=== PATIENT | female | born 1935 | race Caucasian/White ===

== ENCOUNTER 2017-10-10 17:25 | Inpatient (IN) ==
[2017-10-10] MEDS ORDERED: 0.9 % Sodium Chloride 1,000 ML IVC ONE (17:47)
[2017-10-10] MEDS ORDERED: methylPREDNISolone 125 MG/2 ML VIAL IVP ONE (17:51)
[2017-10-10] MEDS ORDERED: Ipratropium/Albuterol Neb 3 ML IH ONE (17:51)
[2017-10-10] MEDS ORDERED: Azithromycin 500 MG in D5% in Water 250 ML IVPB STA (17:53)
--- NOTE | 2017-10-10 17:56 | Emergency Department Note ---
Disposition Clinical Impression: Hypoxia, Mobitz type 2 second degree AV block Pneumonia Qualifiers: Pneumonia type: due to unspecified organism Laterality: unspecified laterality Lung location: unspecified part of lung Qualified Code(s): J18.9 - Pneumonia, unspecified organism Disposition: Admitted As Inpatient Condition: Critical General Adult HPI - General Chief complaint: ED Syncope Stated complaint: pneumonia/syncope Time Seen by Provider: 10/10/17 17:36 Source: patient Limitations: no limitations Nursing Notes Reviewed: Yes Vital Signs Reviewed: Yes - History of Present Illness HPI Narrative: Past medical history of COPD not home oxygen dependent, Lewy body dementia, hypertension presents for evaluation of dyspnea. Patient's symptoms started approximately 1 week ago. Outpatient labs and chest x-ray from yesterday showed multi focal pneumonia. Patient had an elevated white count of 14. She was started on steroids as well as Levaquin. At home today she had acute worsening of her symptoms. She had an episode of reported syncope where she slumped back into her chair in her eyes glazed over. Pain Scale: 0 - Related Data Allergies Allergy/AdvReac Type Severity Reaction Status Date / Time No Known Allergies Allergy Verified 10/10/17 17:28 All systems ED: reviewed and negative except as stated. Constitutional: Reports: fever, chills Cardiovascular: Reports: dyspnea on exertion Respiratory: Reports: cough, dyspnea, wheezes, sputum production Gastrointestinal: Denies: abdominal pain, nausea, vomiting, diarrhea Musculoskeletal: Denies: back pain Integumentary: Denies: rash, abrasion, lesions Psychiatric: Reports: other (dementia) Endocrine: Reports: fatigue Past Medical History - Past Medical History Medical history: Reports: COPD, dementia, hyperlipidemia, hypertension, other Surgical history: Reports: non-contributory Psychiatric history: Reports: no psych history - Social History Smoking Status: Former smoker Smokeless Tobacco Status: No Alcohol use: Reports: none Drug use: Reports: none Physical Exam General: acute respiratory distress. Head: Normocephalic Atraumatic Eyes: PERRL, EOMI ENT: Airway patent, no stridor Neck: supple, no meningismus Chest: Diminished b/l Cardiac: bradycardic Regular rhythm, no murmurs, rubs or gallops Abdomen: soft, nontender, nondistended; no guarding, rebound, or tenderness to percussion Musculoskeletal: Calves symmetric, +2 pitting edema to the knee Skin: No rash, normal skin tone Neuro: Alert and Oriented to person, place - General Limitations: no limitations General appearance: alert Course Course Narrative: Patient respiratory distress with Mobitz type II and bradycardia. Sepsis order set ordered. Fluids, breathing treatments, antibiotics, steroids, atropine ordered. - Reevaluation(s) Reevaluation #1: Patient tolerating BiPAP well. Called by lab for troponin of 0.10. Aspirin given. Time: 18:31 Reevaluation #2: After the patient was placed on BiPAP she had a decrease in her blood pressure which is likely secondary to decreased catecholamine surge. Patient's blood pressure had multiple readings less than 90 systolic. The patient was given atropine with an initial increase in her blood pressure. After approximately 10 minutes the patient's blood pressure has responded. Patient initially lost IV access in the left arm. A right IV has been placed. A second IV has not been able to be established. A central line will be placed. - Consultations Consultation #1: Case was discussed with Dr. Unger, interventional cardiology, adenosine has been given depending on her response to that we can also use dopamine as needed for heart rate and blood pressure response. These are unsuccessful he would like a call back to be notified so that she may receive a pacemaker. Consultation #2: Discussed with hospitalist who requests central line prior to going to the ICU. Central line will be placed. Patient accepted for further evaluation. Vital Signs Temperature 97.7 F 10/10/17 17:28 Pulse Rate 138 10/10/17 17:28 Respiratory Rate 28 10/10/17 17:28 Blood Pressure 183/159 10/10/17 17:28 O2 Sat by Pulse Oximetry 95 10/10/17 17:28 Temperature 98.2 F 10/11/17 00:00 Pulse Rate 44 10/11/17 00:12 Respiratory Rate 25 10/11/17 00:00 Blood Pressure 142/60 10/11/17 00:00 O2 Sat by Pulse Oximetry 95 10/11/17 00:00 Oxygen Delivery Oxygen Delivery Non Rebreather Mask Procedures - Central Line Placement Right IJ Central Line Inserted*: Yes Central Line Catheter Replacement*: Yes Central Line Insertion: emergent Consent Obtained: verbal consent, written consent Procedural Pause: verify patient name and date of , timeout performed per policy, dana and assess the site, assemble equipment and verify supplies, perform hand hygiene Patient Placed on Monitor/Pulse Ox: Yes During the Procedure: clinician is wearing sterile gloves, cap, mask,& gown during insertion, sterile field and sterile technique are maintained, patient's face is covered with drape or mask and wearing a cap, everyone in room is wearing a mask Central Line Prep: Chlorhexidine scrub Prep the Procedure Site: apply chloraprep to the skin using a back and forth scrubbing motion, apply chloraprep for 30 seconds (upper body), 1-2 min ( femoral sites), allow prep to dry, drape the patient with a full body drape Local Anesthetic: lidocaine 1% Amount of anesthesia used (mL): 3 Ultrasound Used for Placement: Yes Central Line Lumen Inserted: triple Post Procedure: sutured in place, good blood return, all ports aspirated, flushed, capped, sterile dressing applied, guide wire removed and visualized, dressing is dated Post Procedure X-Ray: tip of catheter in good position, no pneumothorax seen Patient Tolerated Procedure: well, no complications Complications: none Medical Decision Making - Medical Records Medical records reviewed: Yes I reviewed the patient's medical records. - Lab Data Lab results reviewed: Yes I reviewed the patient's lab results. Result diagrams: 10/10/17 17:59 10/10/17 17:59 Lab Results 10/10/17 10/10/17 10/10/17 Range/Units 17:59 17:59 17:59 WBC 14.0 H (4.3-11.1) K/mcL RBC 4.37 (3.82-4.97) M/mcL Hgb 12.1 (11.5-15.4) g/dL Hct 39.7 (35.3-44.9) % MCV 90.8 (83.0-100.0) fL MCH 27.7 L (28.0-33.3) pg MCHC 30.5 L (31.6-35.5) g/dL RDW 14.4 (11.5-14.5) % Plt Count 252 (140-400) K/mcL MPV 10.8 (9.4-12.4) fL Immature Gran % 0.4 (0-4) % Seg Neutrophils % 92.4 % Lymphocytes % 5.1 % Monocytes % 1.3 % Eosinophils % 0.7 % Basophils % 0.1 % Neutrophils # 12.9 H (1.6-8.9) K/mcL Lymphocytes # 0.7 (0.6-4.6) K/mcL Monocytes # 0.2 (0.0-1.3) K/mcL Eosinophils # 0.1 (0.0-0.6) K/mcL Basophils # 0.0 (0.0-0.2) K/mcL Sodium 139 D (136-145) mEq/L Potassium 4.4 (3.5-4.5) mEq/L Chloride 104 (98-109) mEq/L Carbon Dioxide 27 (19-29) mEq/L BUN 45 H (7-20) mg/dL Creatinine 1.28 H (0.57-1.11) mg/dL Est GFR ( Amer) 49 L (> 60) Est GFR (Non-Af Amer) 40 L (> 60) BUN/Creatinine Ratio 35 H (6-26) Glucose 91 (70-99) mg/dL Calculated Osmolality 299 (280-300) Lactic Acid 2.3 H (0.5-2.2) mmol/L Calcium 9.0 (8.6-10.8) mg/dL Phosphorus 4.0 (2.3-4.7) mg/dL Magnesium 1.8 (1.6-2.6) mg/dL Total Bilirubin 0.9 (0.2-1.2) mg/dL Direct Bilirubin 0.4 (0.0-0.5) mg/dL Indirect Bilirubin 0.5 (0.0-1.2) mg/dL AST 30 (5-34) Units/L ALT 29 (0-55) Units/L Alkaline Phosphatase 77 (38-126) Units/L Troponin I (0-0.03) ng/mL B-Natriuretic Peptide (0-100) pg/mL Serum Total Protein 6.2 (6.0-8.3) g/dL Albumin 2.7 L (3.5-5.0) g/dL Globulin 3.5 (2.4-3.5) g/dL Albumin/Globulin Ratio 0.8 L (1.1-2.2) TSH 1.972 (0.350-4.840) mcIU/mL 10/10/17 10/10/17 Range/Units 17:59 17:59 WBC (4.3-11.1) K/mcL RBC (3.82-4.97) M/mcL Hgb (11.5-15.4) g/dL Hct (35.3-44.9) % MCV (83.0-100.0) fL MCH (28.0-33.3) pg MCHC (31.6-35.5) g/dL RDW (11.5-14.5) % Plt Count (140-400) K/mcL MPV (9.4-12.4) fL Immature Gran % (0-4) % Seg Neutrophils % % Lymphocytes % % Monocytes % % Eosinophils % % Basophils % % Neutrophils # (1.6-8.9) K/mcL Lymphocytes # (0.6-4.6) K/mcL Monocytes # (0.0-1.3) K/mcL Eosinophils # (0.0-0.6) K/mcL Basophils # (0.0-0.2) K/mcL Sodium (136-145) mEq/L Potassium (3.5-4.5) mEq/L Chloride (98-109) mEq/L Carbon Dioxide (19-29) mEq/L BUN (7-20) mg/dL Creatinine (0.57-1.11) mg/dL Est GFR ( Amer) (> 60) Est GFR (Non-Af Amer) (> 60) BUN/Creatinine Ratio (6-26) Glucose (70-99) mg/dL Calculated Osmolality (280-300) Lactic Acid (0.5-2.2) mmol/L Calcium (8.6-10.8) mg/dL Phosphorus (2.3-4.7) mg/dL Magnesium (1.6-2.6) mg/dL Total Bilirubin (0.2-1.2) mg/dL Direct Bilirubin (0.0-0.5) mg/dL Indirect Bilirubin (0.0-1.2) mg/dL AST (5-34) Units/L ALT (0-55) Units/L Alkaline Phosphatase (38-126) Units/L Troponin I 0.10 H* (0-0.03) ng/mL B-Natriuretic Peptide 867 H (0-100) pg/mL Serum Total Protein (6.0-8.3) g/dL Albumin (3.5-5.0) g/dL Globulin (2.4-3.5) g/dL Albumin/Globulin Ratio (1.1-2.2) TSH (0.350-4.840) mcIU/mL - Radiology Data Radiology results reviewed: Yes I reviewed the patient's radiology results. - EKG Data EKG #1 EKG attestation: Yes I reviewed and interpreted this EKG. EKG results narrative: EKG shows sinus bradycardia with second-degree AV block Mobitz type II. Patient 's ventricular rate is 37. QRS 146. QTC 401. No previous EKG for comparison.
[2017-10-10] MEDS ORDERED: *HR* Atropine Sulfate 1 MG/10 ML SYRINGE IVP ONE ×2 (17:58→18:57)
[2017-10-10 18:09] LABS: Basophils % 0.1 %; Eosinophils # 0.1 K/mcL (0.0-0.6); Eosinophils % 0.7 %; Hematocrit 39.7 % (35.3-44.9); Hemoglobin 12.1 g/dL (11.5-15.4); Immature Granulocytes % 0.4 % (0-4); Lymphocytes # 0.7 K/mcL (0.6-4.6); Lymphocytes % 5.1 %; Mean Corpuscular HGB Conc 30.5 g/dL (31.6-35.5); Mean Corpuscular Hemoglobin 27.7 pg (28.0-33.3); Mean Corpuscular Volume 90.8 fL (83.0-100.0); Mean Platelet Volume 10.8 fL (9.4-12.4); Monocytes # 0.2 K/mcL (0.0-1.3); Monocytes % 1.3 %; Neutrophils # 12.9 K/mcL (1.6-8.9); Platelet Count 252 K/mcL (140-400); Red Blood Count 4.37 M/mcL (3.82-4.97); Red Cell Distribution Width 14.4 % (11.5-14.5); Segmented Neutrophils % 92.4 %
[2017-10-10 18:23] LABS: Albumin 2.7 g/dL (3.5-5.0); Albumin/Globulin Ratio 0.8 (1.1-2.2); Bilirubin,Direct 0.4 mg/dL (0.0-0.5); Bilirubin,Indirect 0.5 mg/dL (0.0-1.2); Bilirubin,Total 0.9 mg/dL (0.2-1.2); Globulin 3.5 g/dL (2.4-3.5); Magnesium 1.8 mg/dL (1.6-2.6); Potassium 4.4 mEq/L (3.5-4.5); Total Protein 6.2 g/dL (6.0-8.3)
[2017-10-10] MEDS ORDERED: Aspirin 81 MG TAB.CHEW PO STA (18:30)
--- NOTE | 2017-10-10 18:34 | Emergency Department Note ---
START Narrative - START START: I examined this patient and my medical decision-making was reviewed with the Resident Physician. I agree with the documented findings, disposition and treatment plan as described except to the extent set forth below. Patient was independently seen and evaluated by myself. Patient was seen with the emergency medicine resident Nahid Santos. Please see copy of her notes for details of this ED encounter management and disposition. Briefly: A 82-year-old female with COPD but no O2 dependent presents with several days of cough and shortness of breath bradycardia. Patient was an outpatient x-ray done yesterday which showed multifocal pneumonia and was started on steroids and Levaquin. Increasing fatigue cough shortness of breath patient was bradycardic in the 40s to 50s with a second-degree type II block. Troponin elevated 0.11 consistent with possible NSTEMI. Patient getting IV antibiotics and fluids here from BiPAP getting a DuoNeb in-line treatments. Providing 45 minutes critical care service for this patient admission disposition pending
[2017-10-10 19:22] LABS: Thyroid Stimulating Hormone 1.972 mcIU/mL (0.350-4.840)
[2017-10-10] MEDS ORDERED: Naloxone 0.4 MG/ML INJ IVP PRN (20:23)
[2017-10-10] MEDS ORDERED: Acetaminophen 325 MG TABLET PO PRN (20:23)
[2017-10-10] MEDS ORDERED: Ondansetron 4 MG/2 ML VIAL IVP PRN (20:23)
[2017-10-10 20:26] LABS: Bilirubin,Urine Negative (Negative); Blood,Urine Moderate (Negative); Clarity,Urine Cloudy (Clear); Color,Urine Yellow (Yellow); Glucose,Urine (UA) Normal (Normal); Ketones,Urine Negative (Negative); Leukocyte Esterase,Urine Negative (Negative); Nitrite,Urine Negative (Negative); Protein,Urine >=1000 mg/dL (Neg-Trace); Specific Gravity,Urine 1.025 (1.010-1.025); Urobilinogen,Urine Normal (Normal)
[2017-10-10 20:27] LABS: Squamous Epithelial Cell,Urine Many per lpf (None-Few)
[2017-10-10] MEDS ORDERED: 0.9 % Sodium Chloride 1,000 ML IVC SCH (20:30)
[2017-10-10] MEDS ORDERED: Albuterol 2.5 MG/3 ML NEBULIZER IH PRN (20:32)
--- NOTE | 2017-10-10 20:34 | Internal Med History&Physical ---
<Jerardo Bruno - Last Filed: 10/10/17 22:49> Date of Encounter: 10/10/17 Time of Encounter: 20:20 Assessment and Plan (1) Acute and chronic respiratory failure with hypoxia Current visit: Yes Status: Acute History of COPD and Asthma, no oxygen dependence spO2 in 70-80s in ED Transitioned to BiPAP and sating in 90s now Likely etiology: - Due to pulmonary consolidations - CAP - Additional history of CHF with preserved EF with ECHO 08/28/17 showing EF 60 -65% with mild diastolic LV dysfunction - BNP 867, no previous, will follow Plan: BiPAP support ABG ordered Pulse ox monitoring Duonebs WALKER Albuterol PRN See further treatment below for CAP/Sepsis Pulm/Critical care consulted CODE status - DNR CCA/DNI (2) Symptomatic bradycardia Current visit: Yes Status: Acute History of intermittent syncopal episodes during the last 2 months Improving Dopamine added Cardiology consult pending (3) Mobitz type 2 second degree AV block Current visit: Yes Status: Acute No history of this previously per family EKG demonstrated dropped QRS complexes without CA progression Atropine was given in ED and HR patricia from 30 to 40s. BP stable. Central line in place with dopamine drip for now Cardiology on-board and will followup in the morning to discuss further intervention Cardiac monitoring (4) Sepsis Current visit: Yes Status: Acute Criteria met: See below for management Qualifiers: Sepsis type: sepsis due to unspecified organism Qualified Code(s): A41.9 - Sepsis, unspecified organism (5) CAP (community acquired pneumonia) Current visit: Yes Status: Acute CXR done today showing multilobar consolidations with small left pleural effusion WBC 14.0 Tachypneic with RR in 20s and 30s Sepsis Criteria met - Fluids, Abx and blood cultures sent in ED Lactic acid 2.3, will repeat Plan: IV Cefepime IV Zithromax Solu-Medrol WALKER Duo-nebs WALKER Albuterol PRN Respiratory panel sent Pulse ox monitoring BiPAP for now Qualifiers: Laterality: unspecified laterality Qualified Code(s): J18.9 - Pneumonia, unspecified organism (6) FIORELLA (acute kidney injury) Current visit: Yes Status: Acute Cr 1.28 on arrival. Minimally improved from Urgent care visit yesterday. No history of CKD per family/pt or EMR Gentle IVF for now Recheck BMP in the morning (7) Elevated troponin Current visit: Yes Status: Acute Trop 0.10. Denies any chest pain. EKG with second degree heart block type II Cardiology on board Will trend (8) HTN (hypertension) Current visit: Yes Status: Acute Takes Amlodipine at home. BP have been elevated since arrival. Will restart and follow Qualifiers: Hypertension type: essential hypertension Qualified Code(s): I10 - Essential (primary) hypertension (9) Lewy body dementia Current visit: Yes Status: Chronic Medication rec shows no medical therapy at this time. Will continue to monitor Qualifiers: Dementia behavioral disturbance: without behavioral disturbance Qualified Code(s): G31.83 - Dementia with Lewy bodies; F02.80 - Dementia in other diseases classified elsewhere without behavioral disturbance; F02.80 - Dementia in other diseases classified elsewhere without behavioral disturbance; F02.80 - Dementia in other diseases classified elsewhere without behavioral disturbance (10) HLD (hyperlipidemia) Current visit: Yes Status: Acute Takes Atorvastatin at home Qualifiers: Hyperlipidemia type: unspecified Qualified Code(s): E78.5 - Hyperlipidemia , unspecified (11) DVT prophylaxis Current visit: Yes Status: Acute Heparin 5000 units BID Internal Medicine - H&P: HPI Chief complaint: shortness of breath Admitted From: Home Plans for Post Hospital Care: Home History of present illness: Ms. 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 Per family, her dyspnea started roughly 2 months ago and she has been using Duonebs q4 at home without moderate relief. She was seen at [facility] yesterday and diagnosed with PNA and discharged home with steroids and Levaquin. Patient's symptoms did not improve and returned to the [facility] ED becuase her dyspnea was profound. Additionally, about 2 months, family states that she started having syncopal episodes. There is no history of this complaint previously. On arrival to the ED, vitas show hypoxia, tachypneic, HR in 30s, WBC 14.0, Cr 1.28, BNP 867, trop 0.1, and Lactic acid 2.3. CXR showing multilobar consolidations with left small pleural effusion. EKG showing 2nd degreee AV block type II. Sepsis criteria met and blood cultures sent. She was given atropine, fluids, duonebs, rocephin and zithromax. HR patricia to 40s with BP stable. Cardiolgoy was consulted and agreed to follow in the morning, but in the mean time, agreed to central line placement for dopamine drip. On evaluation, she is AAOx3, on BiPAP in minimal respiratory distress. She is a former smoker and lives with family at home. She was recently worked with ECHO and carotid showing EF 60-65% with mild LV diastolic dysfunction. Carotid demonstrating bilateral 60-79% stenosis. We will admit patient to ICU for close management for hypoxia and bradycardia. Past Med Surg Social Fam HX - Past Medical History Medical history: COPD, dementia, hyperlipidemia, hypertension, other Psychiatric history: no psych history - Past Surgical History Surgical History: non-contributory - Social History Smoking Status: Former smoker Smokeless Tobacco Status: No Alcohol use: none Drug use: none Internal Medicine - H&P: Meds 3 Allergy/AdvReac Type Severity Reaction Status Date / Time No Known Allergies Allergy Verified 10/10/17 17:28 ROS unobtainable: other (difficult to obtain while on BiPAP, she reports shortness of breath. patient denied any other symptoms or complaints.) All Systems PM: A 10-system review of systems was performed and is negative for pertinent findings except as documented above in the HPI. - Constitutional Vitals: Temp Pulse Resp BP Pulse Ox 97.7 F 47 26 143/102 97 10/10/17 17:28 10/10/17 20:12 10/10/17 20:12 10/10/17 20:12 10/10/17 20:12 General appearance: Present: cooperative, mild distress (respiratory) - Head Head exam: Present: atraumatic, normocephalic - Eye Eye exam: Present: EOMI, conjuntiva pink, sclera anicteric - Neck Neck exam general surgery: Present: supple, trachea midline - Respiratory Respiratory exam: Present: decreased breath sounds, respiratory distress, wheezes - Cardiovascular Cardiovascular exam: Present: bradycardia, irregular rhythm - GI/Abdominal GI/Abdominal exam: Present: normal bowel sounds, soft. Absent: tenderness - Extremities Exam Extremities exam: Present: pedal edema (trace edema bilateral LE) - Neurological Exam Neurological exam: Present: alert, oriented X3 - Psychiatric Psychiatric exam: Present: anxious - Skin Skin exam: Present: dry, normal color, warm Internal Med - H&P Results - Labs CBC & Chem 7: 10/10/17 17:59 10/10/17 17:59 Labs: Short CBC 10/10/17 Range/Units 17:59 WBC 14.0 H (4.3-11.1) K/mcL Hgb 12.1 (11.5-15.4) g/dL Hct 39.7 (35.3-44.9) % Plt Count 252 (140-400) K/mcL Neutrophils # 12.9 H (1.6-8.9) K/mcL BMP 10/10/17 17:59 Sodium 139 D Potassium 4.4 Chloride 104 Carbon Dioxide 27 BUN 45 H Creatinine 1.28 H Glucose 91 Calcium 9.0 Cardiac Enzymes 10/10/17 Range/Units 17:59 Troponin I 0.10 H* (0-0.03) ng/mL Liver Function 10/10/17 Range/Units 17:59 Total Bilirubin 0.9 (0.2-1.2) mg/dL Direct Bilirubin 0.4 (0.0-0.5) mg/dL AST 30 (5-34) Units/L ALT 29 (0-55) Units/L Alkaline Phosphatase 77 (38-126) Units/L Albumin 2.7 L (3.5-5.0) g/dL - Impressions ITS Impressions Chest X-Ray 10/10/17 17:48 IMPRESSION: Small left pleural effusion. Bibasilar opacity may reflect atelectasis, pneumonia, or edema. D/ / Job Garcia MD / Job Garcia MD Interpreting Provider: Job Garcia MD <Sheila Connell - Last Filed: 10/11/17 00:09> Date of Encounter: 10/11/17 Internal Medicine - H&P: HPI History of present illness: Ms. Cavazos is a 82 year old female All Systems PM: A 10-system review of systems was performed and is negative for pertinent findings except as documented above in the HPI. - Constitutional Vitals: Temp Pulse Resp BP Pulse Ox 98.5 F 68 25 142/54 98 10/10/17 21:13 10/10/17 23:00 10/10/17 23:00 10/10/17 23:00 10/10/17 23:00 Internal Med - H&P Results - Labs CBC & Chem 7: 10/10/17 17:59 10/10/17 17:59 Labs: Urine 10/10/17 Range/Units 20:12 Urine Color Yellow (Yellow) Urine Clarity Cloudy A (Clear) Urine pH 6.0 (5.0-8.0) pH Units Ur Specific [place] 1.025 (1.010-1.025) Urine Protein >=1000 H (Neg-Trace) mg/dL Urine Glucose (UA) Normal (Normal) mg/dL - Impressions ITS Impressions Chest X-Ray 10/10/17 20:45 IMPRESSION: Interval placement of a right transjugular central venous catheter terminating in the superior vena cava. D/ / Ke Porter MD / Ke Porter MD Interpreting Provider: Ke Porter MD - Attending Attestation I examined this patient and my medical decision-making was reviewed with the Resident Physician. I agree with the documented findings, disposition and treatment plan as described except to the extent set forth below. Ms Cavazos is a 82 yo female who presents with hypoxic respiratory failure and 2nd degree Mobitz II HB. At baseline, she has mild-moderate dementia and is independent with B-ADLs. She has COPD, asthma - on chronic inhalers/meds, HLD, HTN. She is on room air at baseline. In the last months, she has been coming over a respiratory infection. 2 weeks ago, see PCP found consolidation on CXR and received levaquin/steroids. She did not improve and presents today to the ED where she was found to be hypoxic in the 70s. Also found mobitz II HB that got better with atropine and dopamine gtt - cards was informed by the ED. Discussed code status with family - she is DNRCCA/DNI. EKG reviewed by self with rate 37, mobitz II block General - AAO x 3 Psych - in distress Eyes - MELISA. Eye lids intact. No scleral icterus Heart - Irregular, bradycardia. RRR. S1 and S2 present. No added HS/murmurs appreciated. No elevated JVD appreciated. Lung - Adequate air entry b/l, No crackles/wheezes appreciated while on BIPAP GI - Soft, non-tender. No hepatosplenomegaly/ascites. BS+ - No CVA/suprapubic tenderness or palpable bladder distension Skin - Intact. No rash/petechiae/ecchymosis. Warm extremities. +1 b/l Edema MSK - Joints with normal ROM. No joint swellings ROS 14 point review of systems reviewed as best as possible given presentation. Pertinent positive or negative as per HPI or otherwise reviewed as negative XR/XR chest 1V portable IMPRESSION: Small left pleural effusion. Bibasilar opacity may reflect atelectasis, pneumonia, or edema. Hypoxic respiratory failure - will empirically tx for COPD and PNA - cefepime, azithro - CXR no overt consolidation, send atypical serologies - Bipap, check ABG monitoring Second degree HB (type II) - consult cards to assist - dopamine gtt with tele, BP check - d/w case with card collision worker, keep BP stable, HR to improve with dopamine to > 40 preferably HTN HLD DVT ppx H2 GI ppx She is critically ill with high risk for morbidity/mortality as explained to family
[2017-10-10 20:42] LABS: Bacteria,Urine Moderate per hpf (None-Few); Granular Casts,Urine Few per lpf (None Seen); Hyaline Casts,Urine Few per lpf (None-Few)
--- NOTE | 2017-10-10 20:58 | Emergency Department Note ---
Disposition Clinical Impression: Hypoxia, Mobitz type 2 second degree AV block Pneumonia Qualifiers: Pneumonia type: due to unspecified organism Laterality: unspecified laterality Lung location: unspecified part of lung Qualified Code(s): J18.9 - Pneumonia, unspecified organism Disposition: Admitted As Inpatient Condition: Critical General Adult HPI - General Chief complaint: ED Syncope Stated complaint: pneumonia/syncope Time Seen by Provider: 10/10/17 17:36 Source: patient Limitations: no limitations Nursing Notes Reviewed: Yes Vital Signs Reviewed: Yes - History of Present Illness HPI Narrative: This was done for procedure of a central line placement please review Dr. Sanders' s note for full history and physical. Pain Scale: 0 - Related Data Allergies Allergy/AdvReac Type Severity Reaction Status Date / Time No Known Allergies Allergy Verified 10/10/17 17:28 Constitutional: Reports: fever, chills Cardiovascular: Reports: dyspnea on exertion Respiratory: Reports: cough, dyspnea, wheezes, sputum production Gastrointestinal: Denies: abdominal pain, nausea, vomiting, diarrhea Musculoskeletal: Denies: back pain Integumentary: Denies: rash, abrasion, lesions Psychiatric: Reports: other (dementia) Endocrine: Reports: fatigue Past Medical History - Past Medical History Medical history: Reports: COPD, dementia, hyperlipidemia, hypertension, other Surgical history: Reports: non-contributory Psychiatric history: Reports: no psych history - Social History Smoking Status: Former smoker Smokeless Tobacco Status: No Alcohol use: Reports: none Drug use: Reports: none Physical Exam - General Limitations: no limitations General appearance: alert Course Vital Signs Temperature 97.7 F 10/10/17 17:28 Pulse Rate 138 10/10/17 17:28 Respiratory Rate 28 10/10/17 17:28 Blood Pressure 183/159 10/10/17 17:28 O2 Sat by Pulse Oximetry 95 10/10/17 17:28 Temperature 97.7 F 10/10/17 17:28 Pulse Rate 48 10/10/17 20:37 Respiratory Rate 27 10/10/17 20:37 Blood Pressure 139/47 10/10/17 20:37 O2 Sat by Pulse Oximetry 100 10/10/17 20:37 Oxygen Delivery Oxygen Delivery Non Rebreather Mask Procedures - Central Line Placement Right IJ Central Line Inserted*: Yes Central Line Catheter Replacement*: Yes Central Line Insertion: emergent Consent Obtained: written consent Procedural Pause: verify patient name and date of , timeout performed per policy, dana and assess the site, assemble equipment and verify supplies, perform hand hygiene Patient Placed on Monitor/Pulse Ox: Yes During the Procedure: clinician is wearing sterile gloves, cap, mask,& gown during insertion, sterile field and sterile technique are maintained, patient's face is covered with drape or mask and wearing a cap, everyone in room is wearing a mask Central Line Prep: Chlorhexidine scrub, sterile drapes applied Prep the Procedure Site: apply chloraprep to the skin using a back and forth scrubbing motion, apply chloraprep for 30 seconds (upper body), 1-2 min ( femoral sites), allow prep to dry, drape the patient with a full body drape Local Anesthetic: lidocaine 1% Amount of anesthesia used (mL): 3 Ultrasound Used for Placement: Yes Central Line Lumen Inserted: triple Post Procedure: sutured in place, good blood return, all ports aspirated, flushed, capped, sterile dressing applied, guide wire removed and visualized, dressing is dated Post Procedure X-Ray: tip of catheter in good position, no pneumothorax seen Patient Tolerated Procedure: well, no complications Complications: none Name of Clinician Inserting Central Line: Dr. Mota Clinician Assisting/Completing Checklist: Dr. Pierre Date: 10/10/17 Time: 20:58 Medical Decision Making - [facility] Narrative Medical decision making narrative: THsi note was done for procedure note for central line placement - Lab Data Result diagrams: 10/10/17 17:59 10/10/17 17:59 Lab Results 10/10/17 10/10/17 10/10/17 Range/Units 17:59 17:59 17:59 WBC 14.0 H (4.3-11.1) K/mcL RBC 4.37 (3.82-4.97) M/mcL Hgb 12.1 (11.5-15.4) g/dL Hct 39.7 (35.3-44.9) % MCV 90.8 (83.0-100.0) fL MCH 27.7 L (28.0-33.3) pg MCHC 30.5 L (31.6-35.5) g/dL RDW 14.4 (11.5-14.5) % Plt Count 252 (140-400) K/mcL MPV 10.8 (9.4-12.4) fL Immature Gran % 0.4 (0-4) % Seg Neutrophils % 92.4 % Lymphocytes % 5.1 % Monocytes % 1.3 % Eosinophils % 0.7 % Basophils % 0.1 % Neutrophils # 12.9 H (1.6-8.9) K/mcL Lymphocytes # 0.7 (0.6-4.6) K/mcL Monocytes # 0.2 (0.0-1.3) K/mcL Eosinophils # 0.1 (0.0-0.6) K/mcL Basophils # 0.0 (0.0-0.2) K/mcL Sodium 139 D (136-145) mEq/L Potassium 4.4 (3.5-4.5) mEq/L Chloride 104 (98-109) mEq/L Carbon Dioxide 27 (19-29) mEq/L BUN 45 H (7-20) mg/dL Creatinine 1.28 H (0.57-1.11) mg/dL Est GFR ( Amer) 49 L (> 60) Est GFR (Non-Af Amer) 40 L (> 60) BUN/Creatinine Ratio 35 H (6-26) Glucose 91 (70-99) mg/dL Calculated Osmolality 299 (280-300) Lactic Acid 2.3 H (0.5-2.2) mmol/L Calcium 9.0 (8.6-10.8) mg/dL Phosphorus 4.0 (2.3-4.7) mg/dL Magnesium 1.8 (1.6-2.6) mg/dL Total Bilirubin 0.9 (0.2-1.2) mg/dL Direct Bilirubin 0.4 (0.0-0.5) mg/dL Indirect Bilirubin 0.5 (0.0-1.2) mg/dL AST 30 (5-34) Units/L ALT 29 (0-55) Units/L Alkaline Phosphatase 77 (38-126) Units/L Troponin I (0-0.03) ng/mL B-Natriuretic Peptide (0-100) pg/mL Serum Total Protein 6.2 (6.0-8.3) g/dL Albumin 2.7 L (3.5-5.0) g/dL Globulin 3.5 (2.4-3.5) g/dL Albumin/Globulin Ratio 0.8 L (1.1-2.2) TSH 1.972 (0.350-4.840) mcIU/mL 10/10/17 10/10/17 Range/Units 17:59 17:59 WBC (4.3-11.1) K/mcL RBC (3.82-4.97) M/mcL Hgb (11.5-15.4) g/dL Hct (35.3-44.9) % MCV (83.0-100.0) fL MCH (28.0-33.3) pg MCHC (31.6-35.5) g/dL RDW (11.5-14.5) % Plt Count (140-400) K/mcL MPV (9.4-12.4) fL Immature Gran % (0-4) % Seg Neutrophils % % Lymphocytes % % Monocytes % % Eosinophils % % Basophils % % Neutrophils # (1.6-8.9) K/mcL Lymphocytes # (0.6-4.6) K/mcL Monocytes # (0.0-1.3) K/mcL Eosinophils # (0.0-0.6) K/mcL Basophils # (0.0-0.2) K/mcL Sodium (136-145) mEq/L Potassium (3.5-4.5) mEq/L Chloride (98-109) mEq/L Carbon Dioxide (19-29) mEq/L BUN (7-20) mg/dL Creatinine (0.57-1.11) mg/dL Est GFR ( Amer) (> 60) Est GFR (Non-Af Amer) (> 60) BUN/Creatinine Ratio (6-26) Glucose (70-99) mg/dL Calculated Osmolality (280-300) Lactic Acid (0.5-2.2) mmol/L Calcium (8.6-10.8) mg/dL Phosphorus (2.3-4.7) mg/dL Magnesium (1.6-2.6) mg/dL Total Bilirubin (0.2-1.2) mg/dL Direct Bilirubin (0.0-0.5) mg/dL Indirect Bilirubin (0.0-1.2) mg/dL AST (5-34) Units/L ALT (0-55) Units/L Alkaline Phosphatase (38-126) Units/L Troponin I 0.10 H* (0-0.03) ng/mL B-Natriuretic Peptide 867 H (0-100) pg/mL Serum Total Protein (6.0-8.3) g/dL Albumin (3.5-5.0) g/dL Globulin (2.4-3.5) g/dL Albumin/Globulin Ratio (1.1-2.2) TSH (0.350-4.840) mcIU/mL
[2017-10-10] MEDS ORDERED: cefTRIAXone 1,000 MG in Water for inj. (sterile) 10 ML IVPB STA (22:48)
[2017-10-10] MEDS ORDERED: *HR* FentaNYL (PF) 100 MCG/2 ML VIAL ONE (23:01)
[2017-10-10] MEDS ORDERED: *HR* Midazolam HCl 2 MG/2 ML VIAL ONE (23:04)
[2017-10-10] MEDS ORDERED: *HR* FentaNYL (PF) 100 MCG/2 ML VIAL IVP ONE (23:26)
[2017-10-10] MEDS ORDERED: *HR* Midazolam HCl 2 MG/2 ML VIAL IVP ONE (23:26)
[2017-10-10] MEDS ORDERED: *HR* Atropine Sulfate 1 MG/10 ML SYRINGE IVP PRN (23:27)
[2017-10-10] MEDS: 0.9 % Sodium Chloride 1,000 ML IVC SCH (23:40)
[2017-10-11] MEDS: Ipratropium/Albuterol Neb 3 ML IH SCH ×7 (00:38→23:54)
[2017-10-11 03:44] LABS: Basophils % 0.1 %; Hematocrit 38.7 % (35.3-44.9); Hemoglobin 11.9 g/dL (11.5-15.4); Immature Granulocytes % 0.4 % (0-4); Lymphocytes # 0.6 K/mcL (0.6-4.6); Lymphocytes % 5.5 %; Mean Corpuscular HGB Conc 30.7 g/dL (31.6-35.5); Mean Corpuscular Hemoglobin 27.2 pg (28.0-33.3); Mean Corpuscular Volume 88.6 fL (83.0-100.0); Mean Platelet Volume 10.6 fL (9.4-12.4); Monocytes % 0.4 %; Neutrophils # 9.7 K/mcL (1.6-8.9); Platelet Count 317 K/mcL (140-400); Red Blood Count 4.37 M/mcL (3.82-4.97); Red Cell Distribution Width 14.2 % (11.5-14.5); Segmented Neutrophils % 93.6 %
[2017-10-11 03:49] LABS: INR 1.1; Prothrombin Time 11.8 Seconds (9.4-12.1)
[2017-10-11 03:51] LABS: Activated Partial Thrombo Time 24.5 Seconds (26.0-36.0)
[2017-10-11 03:58] LABS: Albumin 2.6 g/dL (3.5-5.0); Albumin/Globulin Ratio 0.7 (1.1-2.2); Bilirubin,Total 0.5 mg/dL (0.2-1.2); Calcium 8.4 mg/dL (8.6-10.8); Globulin 3.7 g/dL (2.4-3.5); Magnesium 1.9 mg/dL (1.6-2.6); Potassium 4.5 mEq/L (3.5-4.5); Total Protein 6.3 g/dL (6.0-8.3)
[2017-10-11 04:18] LABS: ABG Base Excess -1 mEq/L (-2 to 3); ABG HCO3 25 mEq/L (21-27); ABG Oxygen Saturation 97 % (95-98); ABG PCO2 45 mmHg (35-45); ABG PH 7.36 pH Units (7.32-7.45); ABG PO2 96 mmHg (85-104); ABG TCO2 27 mEq/L (20-26)
[2017-10-11] MEDS: *HR* Heparin 5,000 UNIT/ML VIAL SQ SCH ×2 (05:31→18:35)
[2017-10-11] MEDS: Famotidine 20 MG/2 ML VIAL IVP SCH ×2 (05:31→18:35)
[2017-10-11] MEDS ORDERED: Cefepime HCl 2,000 MG in Water for inj. (sterile) 20 ML IVP SCH (06:00)
[2017-10-11] MEDS ORDERED: MethylPREDNISolone 40 MG/ML VIAL IVP SCH (06:00)
--- NOTE | 2017-10-11 09:18 | Pulmonology Consult Note ---
<Heriberto Benavidez M - Last Filed: 10/11/17 11:06> Date of Encounter: 10/11/17 Medications and Allergies Albuterol Sulfate [Albuterol Inhaler] 2 puff IH Q4H PRN 10/11/17 [History] Atorvastatin Calcium [Lipitor] 20 mg PO DAILY 10/11/17 [History] Ergocalciferol (VITAMIN D2) [Vitamin D2] 50,000 unit PO QMONTH 10/11/17 [History ] Fluticasone Propionate Nasal [Flonase] 2 spray NS DAILY 10/11/17 [History] Fluticasone/Salmeterol [Advair Hfa 45-21 Mcg Inhaler] 1 puff NS BID 10/11/17 [ History] Ipratropium/Albuterol Neb [Duoneb] 3 ml IH QID PRN 10/11/17 [History] Montelukast [Singulair] 10 mg PO DAILY 10/11/17 [History] amLODIPine [Norvasc] 5 mg PO DAILY 10/11/17 [History] clonazePAM [Klonopin] 0.25 mg PO BID 10/11/17 [History] levoFLOXacin [Levofloxacin] 250 mg PO DAILY 10/11/17 [History] predniSONE [PredniSONE] See Taper PO TAPER 10/11/17 [History] 3 Allergy/AdvReac Type Severity Reaction Status Date / Time No Known Allergies Allergy Verified 10/10/17 17:28 All Systems: A 10-system review of systems was performed and is negative for pertinent findings except as documented above in the HPI. Physical Examination Vital Signs: Vital Signs, Last 4 Hours Pulse Resp BP Pulse Ox 10/11/17 11:00 40 22 171/56 98 10/11/17 10:13 44 23 138/43 99 10/11/17 09:15 39 22 154/49 98 10/11/17 08:15 40 20 154/84 98 10/11/17 08:07 16 98 10/11/17 07:23 38 21 136/53 97 Results - Laboratory Findings CBC and BMP: 10/11/17 03:33 10/11/17 03:33 ABG ABG pH 7.36 pH Units (7.32-7.45) 10/11/17 04:13 ABG pCO2 45 mmHg (35-45) 10/11/17 04:13 ABG pO2 96 mmHg (85-104) 10/11/17 04:13 ABG O2 Saturation 97 % (95-98) 10/11/17 04:13 PT/INR, D-dimer PT 11.8 Seconds (9.4-12.1) 10/11/17 03:33 Abnormal lab findings: Abnormal lab results MCH 27.2 pg (28.0-33.3) L 10/11/17 03:33 MCHC 30.7 g/dL (31.6-35.5) L 10/11/17 03:33 Neutrophils # 9.7 K/mcL (1.6-8.9) H 10/11/17 03:33 APTT 24.5 Seconds (26.0-36.0) L 10/11/17 03:33 ABG Total CO2 27 mEq/L (20-26) H 10/11/17 04:13 BUN 47 mg/dL (7-20) H 10/11/17 03:33 Creatinine 1.52 mg/dL (0.57-1.11) H 10/11/17 03:33 Est GFR ( Amer) 40 (> 60) L 10/11/17 03:33 Est GFR (Non-Af Amer) 33 (> 60) L 10/11/17 03:33 BUN/Creatinine Ratio 31 (6-26) H 10/11/17 03:33 Glucose 186 mg/dL (70-99) H 10/11/17 03:33 POC Glucose 151 (58-89) H 10/11/17 03:57 Calculated Osmolality 303 (280-300) H 10/11/17 03:33 Calcium 8.4 mg/dL (8.6-10.8) L 10/11/17 03:33 Troponin I 0.16 ng/mL (0-0.03) H* 10/11/17 00:18 B-Natriuretic Peptide 906 pg/mL (0-100) H 10/11/17 03:33 Albumin 2.6 g/dL (3.5-5.0) L 10/11/17 03:33 Globulin 3.7 g/dL (2.4-3.5) H 10/11/17 03:33 Albumin/Globulin Ratio 0.7 (1.1-2.2) L 10/11/17 03:33 Urine Clarity Cloudy (Clear) A 10/10/17 20:12 Urine Protein >=1000 mg/dL (Neg-Trace) H 10/10/17 20:12 Urine Blood Moderate (Negative) H 10/10/17 20:12 Urine Microscopic RBC 3-5 per hpf (0-3) H 10/10/17 20:12 Urine Microscopic WBC 3-5 per hpf (0-3) H 10/10/17 20:12 Ur Squamous Epith Cells Many per lpf (None-Few) H 10/10/17 20:12 Urine Bacteria Moderate per hpf (None-Few) H 10/10/17 20:12 Granular Casts Few per lpf (None Seen) H 10/10/17 20:12 - Clinical Findings Intake & Output: Intake & Output 10/10/17 10/11/17 10/11/17 23:59 07:59 15:59 Intake Total 553 / 553 Output Total 450 / 450 Balance 103 / 103 Weight 76 kg Consult Discharge Plan - Plan Referrals: Jocelyn Dean MD [Primary Care Provider] - - Attending Attestation I examined this patient and my medical decision-making was reviewed with the Resident Physician. I agree with the documented findings, disposition and treatment plan as described except to the extent set forth below. Patient seen and examined. Labs, radiology, chart personally reviewed. Agree with resident's history and physical, assessment, plan with following comments: PURCHASING INTERN: Patient follows commands, patient looks anxious and to treat her anxiety and resume home medication Pulmonary: Acceptable oxygenation and ventilation and continue empiric antibiotics for now. Bronchodilators is reasonable and to stop systemic steroid especially with patient's and anxiety. Cardiovascular: Cardiology regarding pacemaker placement. GI: Nutrition per dietary and GI prophylaxis per routine Heme: DVT prophylaxis per routine Discussed with the family at the bedside and thank you for the consultation <Kayley Albright H - Last Filed: 10/11/17 15:36> Date of Encounter: 10/11/17 Time of Encounter: 09:18 Assessment and Plan (1) Acute and chronic respiratory failure with hypoxia Current Visit: Yes Status: Acute Patient with a history of COPD and asthma is no home oxygen requirement. -Patient required BiPAP in the emergency department after an SPO2 of 70-80%. Did receive BiPAP overnight. -Currently receiving 2 L by nasal cannula and satting 99%. -Suspect hypoxia related to heart block and symptomatic bradycardia. -Continue duo nebs, however, we will discontinue the steroids as patient shortness of breath likely not related to COPD and they are likely contributing to her confusion and anxiety. -Hypoxemia likely cardiac etiology. -De-escalate antibiotic coverage. Stop cefepime, start ceftriaxone (10/11/2017) . Continue Azithryomycin (10/10/2017). (2) Mobitz type 2 second degree AV block Current Visit: Yes Status: Acute Patient with history of intermittent syncopal episodes during the last 2 months. -Dopamine discontinued this morning, heart rate stable at 40 bpm. Will resume if heart rate less than 30. -Cardiology following, appreciate their recommendations. -Patient scheduled for permanent pacemaker tomorrow. (3) Sepsis Current Visit: Yes Status: Acute Sepsis criteria with leukocytosis, tachypnea, and chest x-ray showing multilobar consolidations with small left pleural effusion. Lactic acid 2.3. -DC cefepime, start ceftriaxone. -IV Zithromax. -Follow-up blood cultures. Qualifiers: Sepsis type: sepsis due to unspecified organism Qualified Code(s): A41.9 - Sepsis, unspecified organism (4) Pneumonia Current Visit: Yes Status: Acute Chest x-ray on 10/10/2017 showing multilobar consolidations with small left pleural effusion. -Continue antibiotics as per above. -DC Solu-Medrol as likely contributing to patient's anxiety. -Duo nebs scheduled, albuterol when necessary. -Follow-up blood cultures. -Follow-up respiratory panel. Qualifiers: Pneumonia type: due to unspecified organism Laterality: unspecified laterality Lung location: unspecified part of lung Qualified Code(s): J18.9 - Pneumonia, unspecified organism (5) FIORELLA (acute kidney injury) Current Visit: Yes Status: Acute Creatinine 1.28 on arrival. 1.5 to today. No documented history of C daily per family or EMR. -Continue to monitor. (6) Elevated troponin Current Visit: Yes Status: Acute Troponins 0.10, 0.16. -No chest pain reported. -Cardiology following. May be related to a care for mild hypoxia. -Avoid negative chronotropic agents. (7) HTN (hypertension) Current Visit: Yes Status: Acute Patient on amlodipine at home. -Resume medications. Qualifiers: Hypertension type: essential hypertension Qualified Code(s): I10 - Essential (primary) hypertension (8) Lewy body dementia Current Visit: Yes Status: Chronic Medication reconciliation shows no medical therapy. Qualifiers: Dementia behavioral disturbance: without behavioral disturbance Qualified Code(s): G31.83 - Dementia with Lewy bodies; F02.80 - Dementia in other diseases classified elsewhere without behavioral disturbance; F02.80 - Dementia in other diseases classified elsewhere without behavioral disturbance; F02.80 - Dementia in other diseases classified elsewhere without behavioral disturbance (9) HLD (hyperlipidemia) Current Visit: Yes Status: Acute Atorvastatin. Qualifiers: Hyperlipidemia type: unspecified Qualified Code(s): E78.5 - Hyperlipidemia , unspecified (10) DVT prophylaxis Current Visit: Yes Status: Acute Heparin 5000 units twice a day. History of Present Illness Consult date: 10/11/17 Requesting physician: Sheila Connell Reason for consult: dyspnea, other (heart block, respiratory failure) Chief complaint: Shortness of breath History of present illness: Ms. Cavazos is an 82-year-old female with past medical history of asthma, non- oxygen dependent COPD, lewy body dementia, history of CVA without residual deficits, hypertension, and hyperlipidemia who presented to [facility] with chief complaint of worsening of shortness of breath on 10/10. Per patient's family and review of the medical record, patient's shortness of breath began 2 months prior. She had been receiving duo nebs at home without significant relief. She was seen at an urgent care prior to arrival, was diagnosed with pneumonia and began on steroids and Levaquin. Patient's family also says that the patient has been experiencing syncopal episodes for the last 2 months. In the emergency department, patient was hypoxic, tachypneic, and bradycardic. She was found to have leukocytosis, an FIORELLA, the elevation of 867, and lactic acid of 2.3. Chest x-ray showed multilobar consolidations. EKG demonstrated a second-degree AV block type II. Sepsis criteria is met and blood cultures were sent. Patient received atropine , fluids, duo nebs, ceftriaxone, and Zithromax in the emergency department. Cardiology was brought on board and recommended central line placement with dopamine drip. Past Med Surg Social Fam HX - Past Medical History Attestation: Yes The following information was validated with the patient. Source: old records reviewed, obtained from family, nursing notes reviewed Medical history: COPD, dementia, hyperlipidemia, hypertension, other Psychiatric history: no psych history - Past Surgical History Surgical History: non-contributory - Social History Smoking Status: Former smoker Smokeless Tobacco Status: No Alcohol use: none Drug use: none ROS unobtainable: other (Difficult to obtain secondary to BiPAP.) All Systems: A 10-system review of systems was performed and is negative for pertinent findings except as documented above in the HPI. - Constitutional Constitutional: no chills, no fever(s), no frequent falls, no headache(s) - Cardiovascular Cardiovascular: no chest pain, no chest pain at rest, no chest pain with activity, no diaphoresis, no lightheadedness, no palpitations - Respiratory Respiratory: dyspnea, no cough, no hemoptysis, no pain on inspirtation - Gastrointestinal Gastrointestinal: no abdominal pain, no diarrhea Physical Examination Vital Signs: Vital Signs, Last 4 Hours Pulse Resp BP Pulse Ox 10/11/17 08:15 40 20 154/84 98 10/11/17 08:07 16 98 10/11/17 07:23 38 21 136/53 97 10/11/17 06:00 37 22 91/55 97 General appearance: no acute distress Eyes: nonicteric ENT: oropharynx moist Effort: normal Auscultation: bilateral: clear Cardiovascular: other (bradycardia, regular) Gastrointestinal: normoactive bowel sounds, soft, non-tender, non-distended Integumentary: normal Extremities: no cyanosis, edema (1+ edema bilaterally) Musculoskeletal: no deformities other (Patient was resting tremor bilaterally.) anxious Results - Laboratory Findings CBC and BMP: 10/11/17 03:33 10/11/17 03:33 ABG ABG pH 7.36 pH Units (7.32-7.45) 10/11/17 04:13 ABG pCO2 45 mmHg (35-45) 10/11/17 04:13 ABG pO2 96 mmHg (85-104) 10/11/17 04:13 ABG O2 Saturation 97 % (95-98) 10/11/17 04:13 PT/INR, D-dimer PT 11.8 Seconds (9.4-12.1) 10/11/17 03:33 Abnormal lab findings: Abnormal lab results MCH 27.2 pg (28.0-33.3) L 10/11/17 03:33 MCHC 30.7 g/dL (31.6-35.5) L 10/11/17 03:33 Neutrophils # 9.7 K/mcL (1.6-8.9) H 10/11/17 03:33 APTT 24.5 Seconds (26.0-36.0) L 10/11/17 03:33 ABG Total CO2 27 mEq/L (20-26) H 10/11/17 04:13 BUN 47 mg/dL (7-20) H 10/11/17 03:33 Creatinine 1.52 mg/dL (0.57-1.11) H 10/11/17 03:33 Est GFR ( Amer) 40 (> 60) L 10/11/17 03:33 Est GFR (Non-Af Amer) 33 (> 60) L 10/11/17 03:33 BUN/Creatinine Ratio 31 (6-26) H 10/11/17 03:33 Glucose 186 mg/dL (70-99) H 10/11/17 03:33 POC Glucose 151 (58-89) H 10/11/17 03:57 Calculated Osmolality 303 (280-300) H 10/11/17 03:33 Calcium 8.4 mg/dL (8.6-10.8) L 10/11/17 03:33 Troponin I 0.16 ng/mL (0-0.03) H* 10/11/17 00:18 B-Natriuretic Peptide 906 pg/mL (0-100) H 10/11/17 03:33 Albumin 2.6 g/dL (3.5-5.0) L 10/11/17 03:33 Globulin 3.7 g/dL (2.4-3.5) H 10/11/17 03:33 Albumin/Globulin Ratio 0.7 (1.1-2.2) L 10/11/17 03:33 Urine Clarity Cloudy (Clear) A 10/10/17 20:12 Urine Protein >=1000 mg/dL (Neg-Trace) H 10/10/17 20:12 Urine Blood Moderate (Negative) H 10/10/17 20:12 Urine Microscopic RBC 3-5 per hpf (0-3) H 10/10/17 20:12 Urine Microscopic WBC 3-5 per hpf (0-3) H 10/10/17 20:12 Ur Squamous Epith Cells Many per lpf (None-Few) H 10/10/17 20:12 Urine Bacteria Moderate per hpf (None-Few) H 10/10/17 20:12 Granular Casts Few per lpf (None Seen) H 10/10/17 20:12 - Clinical Findings Intake & Output: Intake & Output 10/10/17 10/11/17 10/11/17 23:59 07:59 15:59 Intake Total 553 / 553 Output Total 450 / 450 Balance 103 / 103 Weight 76 kg
--- NOTE | 2017-10-11 10:30 | Cardiology Consult Note ---
Date of Encounter: 10/11/17 Time of Encounter: 10:27 Assessment and Plan (1) Mobitz type 2 second degree AV block Current Visit: Yes Status: Acute Patient current stable. Ventricular rate 40 bpm. BP stable since admission. Dopamine turned off at the bedside - no change in HR. Patient appears asymptomatic at this time. No compelling indication for an immediate transvenous pacemaker. Should her condition change, we would certainly place one. We did discuss the r/b/a to a permanent pacemaker. Patient and family agreeable to proceed. We'll plan for tomorrow. All questions answered. ICU updated. Discussion w patient/family: The assessment and plan as outlined above was discussed with the patient and/or family members who expressed understanding and agreement. All questions were answered. Thank you for involving us in the care of your patient. Please call with any questions. History of Present Illness Consult date: 10/11/17 Requesting physician: Sheila Connell Consult reason: Bradycardia History of present illness: Ms. Cavazos is a 82 year old female with a history of COPD, essential HTN, and dementia. I had a long discussion with patient and family this morning. Patient is a poor historian. Son reports patient had a sudden glassy appearance, decreased level of consciousness yesterday. She was brought to the ER for further evaluation. She was noted to be bradycardic, ECG demonstrated Mobitz type II AV block. Patient placed on dopamine and transcutaneous pacing. Transcutaneous pacing would be removed overnight. Heart rate 40 range on 6 mcg/kg/m of dopamine. Patient's systolic blood pressure has been normal to high since admission. Past Med Surg Social Fam HX - Past Medical History Medical history: COPD, dementia, hyperlipidemia, hypertension, other Psychiatric history: no psych history - Past Surgical History Surgical History: non-contributory - Social History Smoking Status: Former smoker Smokeless Tobacco Status: No Alcohol use: none Drug use: none Medications and Allergies 3 Allergy/AdvReac Type Severity Reaction Status Date / Time No Known Allergies Allergy Verified 10/10/17 17:28 All Systems Review: A 10-system review of systems was performed and is negative for pertinent findings except as documented above in the HPI. - Constitutional Constitutional: lethargy, weakness - Cardiovascular Cardiovascular: as per HPI, slow heart rate - Neurological Neurological: other (Chronic tremor) Physical Examination Vital Signs, Last 4 Hours Pulse Resp BP Pulse Ox 10/11/17 10:13 44 23 138/43 99 10/11/17 09:15 39 22 154/49 98 10/11/17 08:15 40 20 154/84 98 10/11/17 08:07 16 98 10/11/17 07:23 38 21 136/53 97 General: Conversant, No Apparent Distress HEENT: Atraumatic, Normocephaly, Mucus Membranes Moist Neck: No JVD, Normal carotid pulses Cardiac: Reg Rate and Rhythm, Normal S1 and S2, No Murmur, Other (Bradycardic. ) Lungs: Normal Breath Sounds, No Wheeze, Rales, Rhonchi Neuro: Alert and responsive, No focal deficits noted Abdomen: Soft, Non-Tender Skin: No rashes noted on visualized skin Musculoskeletal: No Chest Wall Tenderness Extremities: No Clubbing, No Cyanosis, No Edema Results 10/11/17 03:33 10/11/17 03:33 Lab Results 10/11/17 10/11/17 10/11/17 00:18 03:33 03:33 WBC 10.3 Hgb 11.9 Hct 38.7 Plt Count 317 INR 1.1 APTT 24.5 L Sodium Potassium Chloride Carbon Dioxide BUN Creatinine Glucose Calcium Magnesium Total Bilirubin AST ALT Alkaline Phosphatase Troponin I 0.16 H* B-Natriuretic Peptide 10/11/17 10/11/17 03:33 03:33 WBC Hgb Hct Plt Count INR APTT Sodium 138 Potassium 4.5 Chloride 105 Carbon Dioxide 24 BUN 47 H Creatinine 1.52 H Glucose 186 H Calcium 8.4 L Magnesium 1.9 Total Bilirubin 0.5 AST 30 ALT 25 Alkaline Phosphatase 77 Troponin I B-Natriuretic Peptide 906 H - Imaging and Cardiology Echo: report reviewed - EKG Interpretation EKG results cardiology: personally reviewed Consult Discharge Plan - Plan Referrals: Jocelyn Dean MD [Primary Care Provider] -
[2017-10-11] MEDS: clonazePAM 0.5 MG TABLET PO SCH ×2 (11:08→21:16)
[2017-10-11] MEDS ORDERED: Azithromycin 500 MG in D5% in Water 250 ML IVPB SCH (21:00)
[2017-10-12 03:52] LABS: Basophils % 0.1 %; Eosinophils % 0.1 %; Hematocrit 31.8 % (35.3-44.9); Immature Granulocytes % 0.5 % (0-4); Lymphocytes # 1.8 K/mcL (0.6-4.6); Lymphocytes % 12.6 %; Mean Corpuscular HGB Conc 31.1 g/dL (31.6-35.5); Mean Corpuscular Hemoglobin 27.4 pg (28.0-33.3); Mean Corpuscular Volume 88.1 fL (83.0-100.0); Monocytes # 1.2 K/mcL (0.0-1.3); Monocytes % 8.6 %; Neutrophils # 10.8 K/mcL (1.6-8.9); Platelet Count 184 K/mcL (140-400); Red Blood Count 3.61 M/mcL (3.82-4.97); Red Cell Distribution Width 14.5 % (11.5-14.5); Segmented Neutrophils % 78.1 %
[2017-10-12 04:00] LABS: Hemoglobin 9.9 g/dL (11.5-15.4)
[2017-10-12 04:09] LABS: Calcium 8.1 mg/dL (8.6-10.8); Potassium 4.4 mEq/L (3.5-4.5)
[2017-10-12] MEDS: Ipratropium/Albuterol Neb 3 ML IH SCH ×6 (04:14→23:25)
[2017-10-12 05:13] LABS: Adenovirus Not Detected (Not Detect); Bordetella Pertussis Not Detected (Not Detect); Chlamydophila pneumoniae Not Detected (Not Detect); Coronavirus 229E Not Detected (Not Detect); Coronavirus HKU1 Not Detected (Not Detect); Coronavirus NL63 Not Detected (Not Detect); Coronavirus OC43 Not Detected (Not Detect); Human Metapneumovirus Not Detected (Not Detect); Human Rhinovirus/Enterovirus Not Detected (Not Detect); Influenza A Subtype 2009 H1 Not Detected (Not Detect); Influenza A Untypeable Not Detected (Not Detect); Influenza B Not Detected (Not Detect); Mycoplasma pneumoniae Not Detected (Not Detect); Parainfluenza Virus 1 Not Detected (Not Detect); Parainfluenza Virus 2 Not Detected (Not Detect); Parainfluenza Virus 3 Not Detected (Not Detect); Parainfluenza Virus 4 Not Detected (Not Detect); Respiratory Syncytial Virus Not Detected (Not Detect)
[2017-10-12] MEDS: *HR* Heparin 5,000 UNIT/ML VIAL SQ SCH ×2 (05:22→17:41)
[2017-10-12] MEDS: Famotidine 20 MG/2 ML VIAL IVP SCH (05:23)
[2017-10-12] MEDS ORDERED: cefTRIAXone 1,000 MG in Water for inj. (sterile) 10 ML IVP SCH (09:00)
--- NOTE | 2017-10-12 09:52 | Pulmonology Progress Note ---
<Gene Terry - Last Filed: 10/12/17 15:56> Date of Encounter: 10/12/17 Time of Encounter: 09:50 Assessment and Plan (1) Acute and chronic respiratory failure with hypoxia Current Visit: Yes Status: Acute Likely secondary to Mobitz type 2 block and underlying respiratory issues Pt c PMHx of COPD and asthma s home O2 requirements Patient required BiPAP in ED and over first night. Transition to 2L NC on which she continues to sat well. On Azithromycin, and Ceftriaxone for PNA. Continue breathing treatments Continue Abx Pacemaker placed this afternoon. (2) Mobitz type 2 second degree AV block Current Visit: Yes Status: Acute EKG demonstrated widened MT interval without progression with dropped QRS complexes and Bradycardia Atropine given in ED, patient placed on dopamine drip Drip turned off, HR up to the 60s/70s and converted to NSR Was taken to OR for pacemaker placement by Cardiology today. Cardiology on board continue to follow recommendations PRN atropine available (3) Sepsis Current Visit: Yes Status: Acute Pt met sepsis criteria based on elevated WBC, Tachypnea, LA 2.3, CXR showing possible pna CXR: 10/10 "Small left pleural effusion, Bibasilar opactiy may reflect atelectasis, pneumonia, or edema." Pt started on Cefepime and Azithromycin in the ED Cefepime stopped and switched to ceftriaxone in the ICU BCx: prelim NGTD Respiratory panel Negative Continue to monitor Continue abx Continue breathing treatments Qualifiers: Sepsis type: sepsis due to unspecified organism Qualified Code(s): A41.9 - Sepsis, unspecified organism (4) Pneumonia Current Visit: Yes Status: Acute CXR: 10/10 "Small left pleural effusion, Bibasilar opactiy may reflect atelectasis, pneumonia, or edema." Pt started on Cefepime and Azithromycin in the ED Cefepime stopped and switched to ceftriaxone in the ICU BCx: prelim NGTD Respiratory panel Negative Continue to monitor Continue abx Continue breathing treatments Qualifiers: Pneumonia type: due to unspecified organism Laterality: unspecified laterality Lung location: unspecified part of lung Qualified Code(s): J18.9 - Pneumonia, unspecified organism (5) Elevated troponin Current Visit: Yes Status: Acute Likley secondary to demand ischemia secondary to Mobtiz type 2, and hypoxia, FIORELLA may be contributing. Cardiology on board: Does not beleive consistent with ACS No chest pain Trops 0.1, 0.16 Continue to monitor. Correct FIORELLA Re-evaluate post pacemaker (6) FIORELLA (acute kidney injury) Current Visit: Yes Status: Acute Cr 1.28 on arrival baseline 1.08 Has continued to trend up. Up to 1.73 today Pt on 1L NS @50mls/hr Q20H will re-ealuate fluid status when back from pacemaker placement. Consider increasing fluids. Continue to avoid nephrotoxic agents (7) HTN (hypertension) Current Visit: Yes Status: Acute Pt on Amlodipine at home. BP has been in the high 140s-150s last 5 checks will continue to hold for now with pacemaker placement this afternoon. Pt has PRN hydralazine if necessary Consider restarting tomorrow. Qualifiers: Hypertension type: essential hypertension Qualified Code(s): I10 - Essential (primary) hypertension (8) HLD (hyperlipidemia) Current Visit: Yes Status: Acute On Atorvastatin at home Continue to hold Statin due to FIORELLA Qualifiers: Hyperlipidemia type: unspecified Qualified Code(s): E78.5 - Hyperlipidemia , unspecified (9) Lewy body dementia Current Visit: Yes Status: Chronic Not on any home medications. Patient currently at baseline mentation continue to monitor Qualifiers: Dementia behavioral disturbance: without behavioral disturbance Qualified Code(s): G31.83 - Dementia with Lewy bodies; F02.80 - Dementia in other diseases classified elsewhere without behavioral disturbance; F02.80 - Dementia in other diseases classified elsewhere without behavioral disturbance; F02.80 - Dementia in other diseases classified elsewhere without behavioral disturbance (10) DVT prophylaxis Current Visit: Yes Status: Acute Continue Heparin 5,000 units BID GI PPx: continue pepcid 20mg IV Subjective Principal diagnosis: Acute + Chronic Resp Failure c Hypoxia, Mobitz type 2 heart block Interval history: 82 F c PMHx of COPD, Lewy Body Demenita, HLD, HTN admitted for Acute on Chronic Respiratory failure secondary to Mobitz type 2 second degree heart block. Patient is at baseline mentation per family. Patient denies pain in chest, or abdomen. Patient denies SOB. patient converted to sinus rhythm with rates in the 60s and 70s. Patient taken to OR today for placement of pacemaker. Objective PUL Vital signs: Last Vital Signs Temp 98.6 F 10/12/17 07:00 Pulse 72 10/12/17 09:00 Resp 28 10/12/17 09:00 BP 129/57 10/12/17 09:00 Pulse Ox 93 10/12/17 04:15 General appearance: no acute distress Eyes: nonicteric ENT: oropharynx moist Neck: supple Effort: normal Auscultation: bilateral: wheezes Cardiovascular: regular rate and rhythm Gastrointestinal: normoactive bowel sounds, soft, non-tender, non-distended Integumentary: normal Extremities: no cyanosis, edema (trace BLE) non-focal exam Results - Laboratory Findings CBC and BMP: 10/12/17 03:30 10/12/17 03:30 ABG ABG pH 7.36 pH Units (7.32-7.45) 10/11/17 04:13 ABG pCO2 45 mmHg (35-45) 10/11/17 04:13 ABG pO2 96 mmHg (85-104) 10/11/17 04:13 ABG O2 Saturation 97 % (95-98) 10/11/17 04:13 PT/INR, D-dimer PT 11.8 Seconds (9.4-12.1) 10/11/17 03:33 Abnormal lab findings: Abnormal lab results WBC 13.9 K/mcL (4.3-11.1) H 10/12/17 03:30 RBC 3.61 M/mcL (3.82-4.97) L 10/12/17 03:30 Hgb 9.9 g/dL (11.5-15.4) L D 10/12/17 03:30 Hct 31.8 % (35.3-44.9) L 10/12/17 03:30 MCH 27.4 pg (28.0-33.3) L 10/12/17 03:30 MCHC 31.1 g/dL (31.6-35.5) L 10/12/17 03:30 Neutrophils # 10.8 K/mcL (1.6-8.9) H 10/12/17 03:30 APTT 24.5 Seconds (26.0-36.0) L 10/11/17 03:33 ABG Total CO2 27 mEq/L (20-26) H 10/11/17 04:13 BUN 50 mg/dL (7-20) H 10/12/17 03:30 Creatinine 1.73 mg/dL (0.57-1.11) H 10/12/17 03:30 Est GFR ( Amer) 34 (> 60) L 10/12/17 03:30 Est GFR (Non-Af Amer) 28 (> 60) L 10/12/17 03:30 BUN/Creatinine Ratio 29 (6-26) H 10/12/17 03:30 POC Glucose 107 (58-89) H 10/11/17 23:10 Calculated Osmolality 301 (280-300) H 10/12/17 03:30 Calcium 8.1 mg/dL (8.6-10.8) L 10/12/17 03:30 Troponin I 0.16 ng/mL (0-0.03) H* 10/11/17 00:18 B-Natriuretic Peptide 906 pg/mL (0-100) H 10/11/17 03:33 Albumin 2.6 g/dL (3.5-5.0) L 10/11/17 03:33 Globulin 3.7 g/dL (2.4-3.5) H 10/11/17 03:33 Albumin/Globulin Ratio 0.7 (1.1-2.2) L 10/11/17 03:33 Urine Clarity Cloudy (Clear) A 10/10/17 20:12 Urine Protein >=1000 mg/dL (Neg-Trace) H 10/10/17 20:12 Urine Blood Moderate (Negative) H 10/10/17 20:12 Urine Microscopic RBC 3-5 per hpf (0-3) H 10/10/17 20:12 Urine Microscopic WBC 3-5 per hpf (0-3) H 10/10/17 20:12 Ur Squamous Epith Cells Many per lpf (None-Few) H 10/10/17 20:12 Urine Bacteria Moderate per hpf (None-Few) H 10/10/17 20:12 Granular Casts Few per lpf (None Seen) H 10/10/17 20:12 - Clinical Findings Intake & Output: Intake & Output 10/11/17 10/12/17 10/12/17 23:59 07:59 15:59 Intake Total 250 / 250 Output Total 600 / 600 500 / 500 Balance -350 / -350 -500 / -500 Weight 79 kg - VTE Documentation of Mechanical Device: Intermittent pneumatic compression device Consult Discharge Plan - Plan Referrals: Jocelyn Dean MD [Primary Care Provider] - <Lidia Gibson - Last Filed: 10/12/17 20:15> Date of Encounter: 10/12/17 Objective PUL Vital signs: Last Vital Signs Temp 98.0 F 10/12/17 15:45 Pulse 64 10/12/17 17:00 Resp 24 10/12/17 17:15 BP 154/73 10/12/17 17:15 Pulse Ox 100 10/12/17 17:15 Results - Laboratory Findings CBC and BMP: 10/12/17 03:30 10/12/17 03:30 ABG ABG pH 7.36 pH Units (7.32-7.45) 10/11/17 04:13 ABG pCO2 45 mmHg (35-45) 10/11/17 04:13 ABG pO2 96 mmHg (85-104) 10/11/17 04:13 ABG O2 Saturation 97 % (95-98) 10/11/17 04:13 PT/INR, D-dimer PT 11.8 Seconds (9.4-12.1) 10/11/17 03:33 Abnormal lab findings: Abnormal lab results WBC 13.9 K/mcL (4.3-11.1) H 10/12/17 03:30 RBC 3.61 M/mcL (3.82-4.97) L 10/12/17 03:30 Hgb 9.9 g/dL (11.5-15.4) L D 10/12/17 03:30 Hct 31.8 % (35.3-44.9) L 10/12/17 03:30 MCH 27.4 pg (28.0-33.3) L 10/12/17 03:30 MCHC 31.1 g/dL (31.6-35.5) L 10/12/17 03:30 Neutrophils # 10.8 K/mcL (1.6-8.9) H 10/12/17 03:30 APTT 24.5 Seconds (26.0-36.0) L 10/11/17 03:33 ABG Total CO2 27 mEq/L (20-26) H 10/11/17 04:13 BUN 50 mg/dL (7-20) H 10/12/17 03:30 Creatinine 1.73 mg/dL (0.57-1.11) H 10/12/17 03:30 Est GFR ( Amer) 34 (> 60) L 10/12/17 03:30 Est GFR (Non-Af Amer) 28 (> 60) L 10/12/17 03:30 BUN/Creatinine Ratio 29 (6-26) H 10/12/17 03:30 POC Glucose 113 (58-89) H 10/12/17 18:08 Calculated Osmolality 301 (280-300) H 10/12/17 03:30 Calcium 8.1 mg/dL (8.6-10.8) L 10/12/17 03:30 Troponin I 0.16 ng/mL (0-0.03) H* 10/11/17 00:18 B-Natriuretic Peptide 906 pg/mL (0-100) H 10/11/17 03:33 Albumin 2.6 g/dL (3.5-5.0) L 10/11/17 03:33 Globulin 3.7 g/dL (2.4-3.5) H 10/11/17 03:33 Albumin/Globulin Ratio 0.7 (1.1-2.2) L 10/11/17 03:33 Urine Clarity Cloudy (Clear) A 10/10/17 20:12 Urine Protein >=1000 mg/dL (Neg-Trace) H 10/10/17 20:12 Urine Blood Moderate (Negative) H 10/10/17 20:12 Urine Microscopic RBC 3-5 per hpf (0-3) H 10/10/17 20:12 Urine Microscopic WBC 3-5 per hpf (0-3) H 10/10/17 20:12 Ur Squamous Epith Cells Many per lpf (None-Few) H 10/10/17 20:12 Urine Bacteria Moderate per hpf (None-Few) H 10/10/17 20:12 Granular Casts Few per lpf (None Seen) H 10/10/17 20:12 - Clinical Findings Intake & Output: Intake & Output 10/12/17 10/12/17 10/12/17 07:59 15:59 23:59 Intake Total 10 / 10 Output Total 500 / 500 Balance -500 / -500 10 / 10 Weight 79 kg - Attending Attestation I saw the patient with the resident agree with History and Physical exam findings. Labs and Radiology were reviewed ORTHOTIST PROSTHETIST: Patient is conscious oriented x3 following commands NECK : No JVD appreciated Pulmonary : Patient is transitioned to NC to continue the bronchodilators and antibiotics , BIPAP if needed at night Cardiac : Hemodynamically stable , patient had her permanent pacemaker today Nutrition/GI: To encourage PO diet Renal : Labs and output reviewed Heme onc : No acute issues ID ; To continue the antibiotics for pneumonia. Musculo skeletal / skin issues : no acute issues Disposition : No she has permanent pacemaker shift her to Medical telemetry Code status: [id number]
[2017-10-12] MEDS: clonazePAM 0.5 MG TABLET PO SCH ×2 (10:09→21:18)
--- NOTE | 2017-10-12 10:39 | Electrocardiograph Report ---
[address] [place], [place] [address] Test Date: 2017-10-10 Pat Name: Tyson Cavazos Department: [id number] Room: 10 Gender: F [employer] Systems Administrator: TMR : 1935 Requested By: Nahid Santos Order Number: [id number] Reading MD: Jeff Raymundo MD Measurements Intervals Clemons Rate: 37 P: VT: 0 QRS: -9 QRSD: 146 T: 110 QT: 485 QTc: 401 Interpretive Statements SINUS BRADYCARDIA WITH 2ND DEGREE AV BLOCK, MOBITZ TYPE II INDETERMINATE AXIS RIGHT BUNDLE BRANCH BLOCK BASELINE ARTIFACT Electronically Signed On 10-12-2017 10:37:28 EST by Jeff Raymundo MD
--- NOTE | 2017-10-12 11:02 | Event Note ---
Date of Encounter: 10/12/17 Time of Encounter: 10:45 - Cardiology Event Note Plan for pacemaker today for mobitz type II. updated on hemoglobin drop of 2gm. Updated on WBC of 13.9, patient is on ATB. Patient is confused. Discussed risks versus benefits of pacemaker with family. Son next of kin, signed consent. Family updated on need to resend code status for 24 hours after pacemaker. Son and family agreeable. Patient will be full code for 24 hours after procedure. Further recommendations pending pacemaker.
[2017-10-12] MEDS ORDERED: 0.9 % Sodium Chloride 500 ML ONE (14:03)
[2017-10-12] MEDS ORDERED: Water for inj. (sterile) 10 ML IV ONE (14:03)
--- NOTE | 2017-10-12 14:03 | Pre-Sedation Evaluation ---
Pre-sedation evaluation - Pre-sedation checklist Date of procedure: 10/12/17 Procedure: pacemaker placement Recent Vitals: Last Vital Signs Temp 98.8 F 10/12/17 12:21 Pulse 40 10/12/17 13:53 Resp 24 10/12/17 13:53 BP 150/49 10/12/17 13:53 Pulse Ox 99 10/12/17 13:53 H&P (including ROS) documented in medical record: Yes Previous reaction to sedatives/anesthetics: No Dietary Status: NPO after Midnight Airway Assessment: Patient can open mouth completely, TMJ function normal, Micrognathia (under-bite, receding chin) absent Dentition: No loose teeth or bridges Possible difficult airway: No ASA Classification *see protocol: CLASS II-Mild systemic disease Plan of Care: Pt appropriate candidate for procedure/moderate/conscious sedation , Risks/benefits of procedure/sedation discussed w/ patient/family
[2017-10-12] MEDS ORDERED: *HR* FentaNYL (PF) 100 MCG/2 ML VIAL ONE (14:17)
[2017-10-12] MEDS ORDERED: 0.9 % Sodium Chloride 1,000 ML ONE (14:17)
[2017-10-12] MEDS ORDERED: *HR* Midazolam HCl 2 MG/2 ML VIAL ONE (14:17)
[2017-10-12] MEDS ORDERED: 0.9 % Sodium Chloride 1,000 ML IVC SCH (20:05)
[2017-10-12] MEDS ORDERED: Ondansetron 4 MG/2 ML VIAL IVP PRN (20:05)
[2017-10-12] MEDS ORDERED: Acetaminophen 325 MG TABLET PO PRN (20:05)
[2017-10-12] MEDS ORDERED: Albuterol 2.5 MG/3 ML NEBULIZER IH PRN (20:05)
[2017-10-12] MEDS ORDERED: *HR* Atropine Sulfate 1 MG/10 ML SYRINGE IVP PRN (20:05)
[2017-10-12] MEDS ORDERED: Naloxone 0.4 MG/ML INJ IVP PRN (20:05)
[2017-10-12] MEDS ORDERED: Azithromycin 500 MG in D5% in Water 250 ML IVPB SCH (21:00)
[2017-10-13] MEDS: Ipratropium/Albuterol Neb 3 ML IH SCH ×5 (03:46→20:36)
[2017-10-13 04:13] LABS: Basophils % 0.1 %; Eosinophils # 0.1 K/mcL (0.0-0.6); Eosinophils % 1.5 %; Hematocrit 33.1 % (35.3-44.9); Hemoglobin 9.6 g/dL (11.5-15.4); Immature Granulocytes % 0.2 % (0-4); Lymphocytes # 1.7 K/mcL (0.6-4.6); Lymphocytes % 19.3 %; Mean Corpuscular Hemoglobin 26.8 pg (28.0-33.3); Mean Corpuscular Volume 92.5 fL (83.0-100.0); Mean Platelet Volume 11.1 fL (9.4-12.4); Monocytes # 0.9 K/mcL (0.0-1.3); Monocytes % 10.9 %; Neutrophils # 5.9 K/mcL (1.6-8.9); Platelet Count 129 K/mcL (140-400); Red Blood Count 3.58 M/mcL (3.82-4.97); Red Cell Distribution Width 14.6 % (11.5-14.5)
[2017-10-13 04:22] LABS: BUN/Creatinine Ratio 29 (6-26); Carbon Dioxide 27 mEq/L (19-29); Chloride 111 mEq/L (98-109); Potassium 4.4 mEq/L (3.5-4.5); Sodium 143 mEq/L (136-145); eGFR For African Americans 47 (> 60); eGFR For Non-African Americans 39 (> 60)
[2017-10-13 04:23] LABS: Blood Urea Nitrogen 38 mg/dL (7-20)
[2017-10-13] MEDS: *HR* Heparin 5,000 UNIT/ML VIAL SQ SCH ×2 (05:31→17:24)
[2017-10-13] MEDS ORDERED: Famotidine 20 MG/2 ML VIAL IVP SCH ×2 (06:00)
[2017-10-13] MEDS: cefTRIAXone 1,000 MG in Water for inj. (sterile) 10 ML IVP SCH (07:48)
[2017-10-13] MEDS: clonazePAM 0.5 MG TABLET PO SCH ×2 (07:49→19:44)
--- NOTE | 2017-10-13 10:04 | Cardiology Progress Note ---
Date of Encounter: 10/13/17 Time of Encounter: 09:30 Assessment and Plan (1) Mobitz type 2 second degree AV block Current Visit: Yes Status: Acute Per cardiology: -Bradycardic on admission. Per discussion with Dr.John Zuleta, 2:1 AV block. -S/p pacemaker yesterday. Small area of old blood noted on dressing. -Chest x-rays without pneumothorax. -Patient states she feels fine this morning, denies complaints. -Pacemaker education reviewed with patient and family. -Device check today normal. -Cardiology will sign off. Pacemaker follow up will be made with [facility]. Follow up set. Discussion w patient/family: The assessment and plan as outlined above was discussed with the patient and/or family members who expressed understanding and agreement. All questions were answered. Thank you for involving us in the care of your patient. Please call with any questions. Discussed and reviewed with . ACTIVITY: Moderate activity for the next 7 days. No lifting more than 5 pounds ( gallon of milk) for 4-6 weeks. Avoid lifting your arm on the same side as the device for 4 weeks. BATHING /SHOWERING: Do not remove the large bandage over the site for 2 days. Do not allow the device to get wet for 7-10 days. You may bathe/shower, but do not use soap and water on the site. When bathing, keep the site dry by covering with Saran wrap or a towel. WOUND CARE: The white steri-strips will start to peel away and come off after 14 days, or your doctor will remove them after [address] anything into or on top of the incision. Do not use cotton swabs. Do not use any antibiotic ointment or Vitamin E on the site. REMINDERS: You may use electrical devices, such as, microwaves, hair dryers, electric razors, electric blankets, etc. as long as they are in good condition and kept 6 -8 inches away from the device. It is recommended to use cell phones on the opposite side of your device. Notify security personnel at the airport that you have a device before you go through airport security screening. When at places with security monitors, such as a grocery store, do not linger near these monitors. It is fine to walk past them in a normal manner. Refer to your owners manual for more specific directions. CARRY YOUR PACEMAKER/ICD CARD WITH YOU AT ALL TIMES Return to work as instructed per physician Resume driving as instructed per physician Keep all scheduled follow up appointments Resume medications as instructed Contact [facility] ( ) if: You develop excessive bleeding from insertion or wound site not controlled by applying pressure You develop a fever greater than 101 degrees Fahrenheit Your incision becomes reddened at or around the site Your incision develops yellowish or greenish drainage or development of white pimple-like bumps You experience excessive pain You develop swelling in your ankles You experience muscle switching You develop excessive hiccupping If you experience chest pain, shortness of breath, dizziness, or extreme tiredness, stop the activity and rest. Please notify [facility] office if you experience any of these symptoms and they are not relieved by rest please call 911! Subjective Principal diagnosis: Acute + Chronic Resp Failure c Hypoxia, Mobitz type 2 heart block Interval history: Patient states she feels fine this morning. Denies complaints. More awake today. Objective Vital Signs, Last 4 Hours Temp Pulse Resp BP Pulse Ox 10/13/17 09:57 94 10/13/17 07:30 18 94 10/13/17 07:13 97.6 F 74 22 179/76 94 General: Conversant, No Apparent Distress HEENT: Atraumatic, Normocephaly, Mucus Membranes Moist Neck: No JVD, Normal carotid pulses Cardiac: Reg Rate and Rhythm, Normal S1 and S2, No Murmur Lungs: Normal Breath Sounds, No Wheeze, Rales, Rhonchi Neuro: Alert and responsive, Other (Oriented to person and place. ) Abdomen: Soft, Non-Tender Skin: No rashes noted on visualized skin Musculoskeletal: No Chest Wall Tenderness Extremities: No Clubbing, No Cyanosis, No Edema, Normal Pulses Results 10/13/17 04:00 10/13/17 04:00 Lab Results Impressions Chest X-Ray 10/12/17 15:23 IMPRESSION: Stable cardiomegaly. Mild pulmonary vascular congestion. Small atelectasis and small pleural effusion at the left lung base. D/ / Emil Mathews MD / Emil Mathews MD Interpreting Provider: Emil Mathews MD Chest X-Ray 10/13/17 06:00 IMPRESSION: Pacemaker placement without complicating feature. D/ / Nuno Reynolds MD / Nuno Reynolds MD Interpreting Provider: Nuno Reynolds MD Active Medications Acetaminophen (Tylenol) 650 mg PO Q6HR PRN PRN Reason: fever GREATER than 101.2 F Stop: 04/11/18 20:24 Albuterol Sulfate (Proventil Neb) 2.5 mg IH Q2H PRN; Protocol PRN Reason: Shortness Of Breath/Wheezing Stop: 04/11/18 20:33 Albuterol/Ipratropium (Duoneb) 3 ml IH [id number] WALKER Stop: 04/12/18 00:01 Last Admin: 10/13/17 07:30 Dose: 3 ml Atropine Sulfate (Atropine) 1 mg IVP Q10MIN PRN PRN Reason: HR <30 Stop: 04/11/18 23:28 Azithromycin (Zithromax) 500 mg PO Q24H WALKER Stop: 04/14/18 20:01 Clonazepam (Klonopin) 0.5 mg PO BID [facility] Stop: 04/12/18 10:16 Last Admin: 10/13/17 07:49 Dose: 0.5 mg Famotidine (Pepcid) 20 mg PO DAILY WALKER PRN Reason: Protocol Stop: 04/15/18 09:01 Heparin Sodium (Porcine) (Heparin) 5,000 unit SQ Q12HCO WALKER PRN Reason: Protocol Stop: 04/12/18 06:01 Last Admin: 10/13/17 05:31 Dose: 5,000 unit Hydralazine HCl (Hydralazine) 5 mg IVP Q1H PRN PRN Reason: SBP >170 or DBP >100 Stop: 04/11/18 23:22 Sodium Chloride (0.9 % Sodium Chloride) 1,000 mls @ 50 mls/hr IVC .Q20H WALKER Stop: 04/11/18 23:24 Last Admin: 10/12/17 21:20 Dose: 50 mls/hr Ceftriaxone Sodium 1,000 mg/ (Sterile Water) 10 mls @ 300 mls/hr IVP DAILY WALKER Stop: 04/13/18 09:01 Last Admin: 10/13/17 07:48 Dose: 300 mls/hr Naloxone HCl (Narcan) 0.4 mg IVP Q2MIN PRN PRN Reason: Opioid Reversal Stop: 04/11/18 20:24 Ondansetron HCl (Zofran) 4 mg IVP Q6HR PRN; Protocol PRN Reason: Nausea And Vomiting Stop: 04/11/18 20:24 Laboratory Tests 10/12/17 10/13/17 10/13/17 03:30 04:00 04:00 WBC 8.6 Hgb 9.6 L Creatinine 1.73 H 1.31 H - Imaging and Cardiology Chest Xray: report reviewed Echo: report reviewed - EKG Interpretation EKG results cardiology: other (Telemetry reviewed with average HR previous 12 hours noted to be 68, paced rhythm. PVCs noted.) - VTE Documentation of Mechanical Device: Intermittent pneumatic compression device Consult Discharge Plan - Plan Referrals: Jocelyn Dean MD [Primary Care Provider] -
--- NOTE | 2017-10-13 10:54 | Internal Med Progress Note ---
<Ed John - Last Filed: 10/13/17 13:05> Date of Encounter: 10/13/17 Time of Encounter: 10:52 - Assessment and plan (1) Acute and chronic respiratory failure with hypoxia Current Visit: Yes Status: Acute Assessment and plan: in setting of new 2nd degree AV block mobitz II, PNA, ADHF and hx of COPD patient walked today and required 3L O2 on day four ceftriaxone and azithromycin for community acquired pneumonia. tomorrow last day. continue duonoeb, supplemental O2 (2) Mobitz type 2 second degree AV block Current Visit: Yes Status: Acute Assessment and plan: s/p pacemaker placement rate is controlled device check wnl follow up with cardiology outpatient. (3) Pneumonia Current Visit: Yes Status: Acute Assessment and plan: day 4 of ceftriaxone and Zithromax. Community acquired bacterial pneumonia Cultures negative Patient's respiratory status improving. Currently she is requiring oxygen supplementation On exam patient has diminished inspiratory effort and wheezing. Plan is to finish antibiotics are lasted tomorrow. Continue oxygen supplementation and duonebs Qualifiers: Pneumonia type: due to unspecified organism Laterality: unspecified laterality Lung location: unspecified part of lung Qualified Code(s): J18.9 - Pneumonia, unspecified organism (4) FIORELLA (acute kidney injury) Current Visit: Yes Status: Acute Assessment and plan: improving. scr 1.31 on maintenance fluids will d/c patient has 1+ pedal edema b/l improving avoid nephrotoxic medications avoid diuretics (5) DVT prophylaxis Current Visit: Yes Status: Acute Assessment and plan: heparin SQ (6) Elevated troponin Current Visit: Yes Status: Acute Assessment and plan: adynamic in setting of av block mobitz II, ADHF, and fiorella no chest pain EF 65% and no wall motion abnormalities, no valvular dysfunction not likely to be acs (7) Lewy body dementia Current Visit: Yes Status: Chronic Assessment and plan: Alert Oriented to self and time Not oriented to situation or place. Family says patient is at baseline mental status. She does not take any medications for this at home. Qualifiers: Dementia behavioral disturbance: without behavioral disturbance Qualified Code(s): G31.83 - Dementia with Lewy bodies; F02.80 - Dementia in other diseases classified elsewhere without behavioral disturbance; F02.80 - Dementia in other diseases classified elsewhere without behavioral disturbance; F02.80 - Dementia in other diseases classified elsewhere without behavioral disturbance (8) Sepsis Current Visit: Yes Status: Resolved Assessment and plan: suspected 2nd to PNA on antibiotics as stated above. Qualifiers: Sepsis type: sepsis due to unspecified organism Qualified Code(s): A41.9 - Sepsis, unspecified organism (9) Physical deconditioning Current Visit: Yes Status: Acute Assessment and plan: Patient has unsteady gait. Patient becomes hypoxic with walking. Consult PT and OT to evaluate for rehabilitation needs. Consult social staff worker for possible ECF placement. - Subjective Interval history: Patient laying in bed comfortably. Denies sob, chest pain, abdominal pain. Family reports she is tolerating diet. Patient ambulates independently at home but has not in the hospital. Patient is not on O2 at home. Family reports patient have cough still. - Constitutional Vitals: Temp Pulse Resp BP Pulse Ox 97.6 F 74 18 179/76 94 10/13/17 07:13 10/13/17 07:13 10/13/17 07:30 10/13/17 07:13 10/13/17 09:57 General appearance: Present: cooperative, mild distress (respiratory) - Other Additional findings: General: Pleasant without distress Heart: irregularly irregular Lungs:very diminished. inspiratory wheezing, poor inspratory effort. Abdomen: Soft nontender, nondistended positive bowel sounds Skin: warm and dry Extremities: 1+ pedal edema b/l MSK: patient unsteady on feet when walking. Neuro: only alert to self, and time but not to situation or place. Vascular: Pedal and radial pulses 2 out of 4 Internal Medicine: Result - Labs CBC & Chem 7: 10/13/17 04:00 10/13/17 04:00 Labs: Short CBC 10/13/17 Range/Units 04:00 WBC 8.6 (4.3-11.1) K/mcL Hgb 9.6 L (11.5-15.4) g/dL Hct 33.1 L (35.3-44.9) % Plt Count 129 L (140-400) K/mcL Neutrophils # 5.9 (1.6-8.9) K/mcL BMP 10/13/17 04:00 Sodium 143 Potassium 4.4 Chloride 111 H Carbon Dioxide 27 BUN 38 H D Creatinine 1.31 H - ABG Interpretation ABG results: ABG ABG pH 7.36 pH Units (7.32-7.45) 10/11/17 04:13 ABG pCO2 45 mmHg (35-45) 10/11/17 04:13 ABG pO2 96 mmHg (85-104) 10/11/17 04:13 ABG O2 Saturation 97 % (95-98) 10/11/17 04:13 PT/INR, D-dimer PT 11.8 Seconds (9.4-12.1) 10/11/17 03:33 - Impressions Impressions Chest X-Ray 10/12/17 15:23 IMPRESSION: Stable cardiomegaly. Mild pulmonary vascular congestion. Small atelectasis and small pleural effusion at the left lung base. D/ / Emil Mathews MD / Emil Mathews MD Interpreting Provider: Emil Mathews MD Chest X-Ray 10/13/17 06:00 IMPRESSION: Pacemaker placement without complicating feature. D/ / Nuno Reynolds MD / Nuno Reynolds MD Interpreting Provider: Nuno Reynolds MD - VTE Documentation of Mechanical Device: Intermittent pneumatic compression device Consult Discharge Plan - Plan Referrals: Jocelyn Dean MD [Primary Care Provider] - <Yaya-Eric South - Last Filed: 10/13/17 15:17> Date of Encounter: 10/13/17 - Constitutional Vitals: Temp Pulse Resp BP Pulse Ox 97.9 F 73 18 172/74 98 10/13/17 11:49 10/13/17 11:49 10/13/17 11:49 10/13/17 11:49 10/13/17 11:49 Internal Medicine: Result - Labs CBC & Chem 7: 10/13/17 04:00 10/13/17 04:00 Labs: Short CBC 10/13/17 Range/Units 04:00 WBC 8.6 (4.3-11.1) K/mcL Hgb 9.6 L (11.5-15.4) g/dL Hct 33.1 L (35.3-44.9) % Plt Count 129 L (140-400) K/mcL Neutrophils # 5.9 (1.6-8.9) K/mcL BMP 10/13/17 04:00 Sodium 143 Potassium 4.4 Chloride 111 H Carbon Dioxide 27 BUN 38 H D Creatinine 1.31 H - ABG Interpretation ABG results: ABG ABG pH 7.36 pH Units (7.32-7.45) 10/11/17 04:13 ABG pCO2 45 mmHg (35-45) 10/11/17 04:13 ABG pO2 96 mmHg (85-104) 10/11/17 04:13 ABG O2 Saturation 97 % (95-98) 10/11/17 04:13 PT/INR, D-dimer PT 11.8 Seconds (9.4-12.1) 10/11/17 03:33 - Impressions Impressions Chest X-Ray 10/12/17 15:23 IMPRESSION: Stable cardiomegaly. Mild pulmonary vascular congestion. Small atelectasis and small pleural effusion at the left lung base. D/ / Emil Mathews MD / Emil Mathews MD Interpreting Provider: Emil Mathews MD Chest X-Ray 10/13/17 06:00 IMPRESSION: Pacemaker placement without complicating feature. D/ / Nuno Reynolds MD / Nuno Reynolds MD Interpreting Provider: Nuno Reynolds MD - Attending Attestation I examined this patient and my medical decision-making was reviewed with the Resident Physician. I agree with the documented findings, disposition and treatment plan as described except to the extent set forth below. I have seen and examined the patient. Admitted for secondary AV block and respiratory failure with hypoxia. Patient is being treated for COPD and CHF. Patient had a pacemaker placement yesterday. No other acute events or complaints at this time.
[2017-10-13] MEDS: Azithromycin 250 MG TABLET PO SCH (19:44)
[2017-10-14] MEDS: Ipratropium/Albuterol Neb 3 ML IH SCH ×7 (03:59→23:44)
[2017-10-14 04:36] LABS: Calcium 8.2 mg/dL (8.6-10.3); Potassium 4.4 mEq/L (3.5-5.1)
[2017-10-14] MEDS: *HR* Heparin 5,000 UNIT/ML VIAL SQ SCH ×2 (05:28→17:30)
[2017-10-14] MEDS: cefTRIAXone 1,000 MG in Water for inj. (sterile) 10 ML IVP SCH (08:59)
[2017-10-14] MEDS: clonazePAM 0.5 MG TABLET PO SCH ×2 (08:59→19:52)
[2017-10-14] MEDS ORDERED: Famotidine 20 MG TABLET PO SCH (09:00)
--- NOTE | 2017-10-14 10:36 | Discharge Summary ---
<Ed John - Last Filed: 10/14/17 10:32> Date of Encounter: 10/14/17 Time of Encounter: 10:33 - Discharge Diagnosis (1) Acute and chronic respiratory failure with hypoxia Priority: Primary Status: Acute (2) Sepsis Priority: Secondary Status: Resolved Qualifiers: Sepsis type: sepsis due to unspecified organism Qualified Code(s): A41.9 - Sepsis, unspecified organism (3) Mobitz type 2 second degree AV block Priority: Secondary Status: Acute (4) Pneumonia Priority: Secondary Status: Acute Qualifiers: Pneumonia type: due to unspecified organism Laterality: unspecified laterality Lung location: unspecified part of lung Qualified Code(s): J18.9 - Pneumonia, unspecified organism (5) FIORELLA (acute kidney injury) Priority: Secondary Status: Acute (6) DVT prophylaxis Priority: Secondary Status: Acute (7) Elevated troponin Priority: Secondary Status: Acute (8) Lewy body dementia Priority: Secondary Status: Chronic Qualifiers: Dementia behavioral disturbance: without behavioral disturbance Qualified Code(s): G31.83 - Dementia with Lewy bodies; F02.80 - Dementia in other diseases classified elsewhere without behavioral disturbance; F02.80 - Dementia in other diseases classified elsewhere without behavioral disturbance; F02.80 - Dementia in other diseases classified elsewhere without behavioral disturbance (9) Physical deconditioning Priority: Secondary Status: Acute - Discharge Medications Home Medications: RX: Albuterol Sulfate [Albuterol Inhaler] 2 puff IH Q4H PRN 10/11/17 [History] RX: Atorvastatin Calcium [Lipitor] 20 mg PO DAILY 10/11/17 [History] RX: Ergocalciferol (VITAMIN D2) [Vitamin D2] 50,000 unit PO QMONTH 10/11/17 [ History] RX: Fluticasone Propionate Nasal [Flonase] 2 spray NS DAILY 10/11/17 [History] RX: Fluticasone/Salmeterol [Advair Hfa 45-21 Mcg Inhaler] 1 puff NS BID [History] RX: Ipratropium/Albuterol Neb [Duoneb] 3 ml IH QID PRN 10/11/17 [History] RX: Montelukast [Singulair] 10 mg PO DAILY 10/11/17 [History] RX: amLODIPine [Norvasc] 5 mg PO DAILY 10/11/17 [History] RX: clonazePAM [Klonopin] 0.25 mg PO BID 10/11/17 [History] Allergies/Adverse Reactions: 3 Allergy/AdvReac Type Severity Reaction Status Date / Time No Known Allergies Allergy Verified 10/10/17 17:28 Procedures/tests Complete & Pending: Procedures Performed prior 72 hours Category Date Time Status CL Insert Permanent Pacemaker [CL] Routine Program Advisor 10/11/17 10:35 Completed EV limited echocardiogram Routine Y 10/11/17 10:36 Completed Date of admission: 10/10/17 19:50 Primary care physician: Jocelyn Dean MD Consults: 10/10/17 20:26 Consult to Cardiology [CONS] Routine Comment: Consulting Provider: Cardiology T[facility]ord Reason for Consult: morbitz II HB Call Completed: No Consult to Pulmonology [CONS] Routine Consulting Provider: Pulm [facility] Sleep Katharina Reason for Consult: ICU. HB, respiratory failure Call Completed: No 10/13/17 10:07 Consult to Occupational Therapy [CONS] Routine Comment: Evaluate, develop and implement POC Reason for Consult: discharge planning. Consult to Physical Therapy [CONS] Routine Comment: Evaluate, develop and implement POC Reason for Consult: discharge planning. Discharging clinician: Ed John Anticipated date of discharge: 10/14/17 - Patient Status Disposition: Transfer SNF Condition: Critical Functional capacity at discharge: wheelchair bound Overall status at discharge: patient is progressing back to baseline - Discharge Instructions Instructions: Pacemaker (DC), Chronic Hypertension (DC), Pneumonia (DC) Follow Up With: Jocelyn Dean MD [Primary Care Provider] - (waiting for placement...) - Diet and Activity Activity: as per physical therapy Diet: low fat, low cholesterol, low salt diet Hospital course: Ms. Cavazos is a 82 year old female presented with chief complaint of shortness of breath. Patient has had shortness of breath past 2 months. This has not resolved by home nebulizer treatments. ON day before admission she was seen again in urgent care and diagnosed with pneumonia and started on Levaquin but her symptoms worsened. Along with this patient has had syncopal episodes as well. On arrival patient was found to be in second-degree AV block type II. Patient is bradycardic, given atropine and started on dopamine drip. She met sepsis criteria and was started on Rocephin and Zithromax for community acquired pneumonia. Cardiology was consulted and recommended permanent pacemaker. Patient had a pacemaker placed and on device check pacemaker was normal. Her bradycardia resolved and patient had a paced sinus rhythm. Patient tolerated procedure well. Patient also presented with FIORELLA which initially worsened as she was put on lasix due to ADEF. But this was discontinued patient was hydrated with IVF and her Scr returned to baseline. She is respiratory symptoms improved as well. Leukocytosis resolved. Patient underwent 6min O2 qualificatoin test and required 3L O2. She had PT/OT consulted and patient will be discharged to rehab facility. Time: Follow-up with PCP, cardiology outpatient. - Time Spent with Patient Total time spent providing and/or coordinating discharge services: - Constitutional Vitals: Temp Pulse Resp BP Pulse Ox 98 F 115 17 169/64 95 10/14/17 07:26 10/14/17 07:26 10/14/17 07:40 10/14/17 07:26 10/14/17 07:40 General appearance: Present: cooperative, mild distress (respiratory) - Other Additional findings: General: pleasant without distress HEENT: Head atraumatic, normocephalic, EOMI, PERRL, neck nontender to palpation , absent lymphadenopathy, Moist Mucous Membranes, Heart: Regular rate and rhythm with no murmur Lungs: wheezing b/l Abdomen: Soft nontender, nondistended positive bowel sounds Skin: warm and dry Extremities: absent pedal edema. Neuro: Cranial nerves II through XII intact, UE and LE sensation equal bilaterally, UE and LEstrength 4/5, alert oriented to self and time only. , Vascular: Pedal and radial pulses 2 out of 4 - VTE Documentation of Mechanical Device: Intermittent pneumatic compression device <Eric Hewitt - Last Filed: 10/14/17 13:03> Date of Encounter: 10/14/17 Date of admission: 10/10/17 19:50 Primary care physician: Jocelyn Dean MD Consults: 10/10/17 20:26 Consult to Cardiology [CONS] Routine Comment: Consulting Provider: Cardiology Katharina Reason for Consult: morbitz II HB Call Completed: No Consult to Pulmonology [CONS] Routine Consulting Provider: [facility] Reason for Consult: ICU. HB, respiratory failure Call Completed: No 10/13/17 10:07 Consult to Occupational Therapy [CONS] Routine Comment: Evaluate, develop and implement POC Reason for Consult: discharge planning. Consult to Physical Therapy [CONS] Routine Comment: Evaluate, develop and implement POC Reason for Consult: discharge planning. Hospital course: Ms. Cavazos is a 82 year old female - Time Spent with Patient Total time spent providing and/or coordinating discharge services: - Constitutional Vitals: Temp Pulse Resp BP Pulse Ox 98.2 F 79 17 153/69 95 10/14/17 11:38 10/14/17 11:38 10/14/17 11:38 10/14/17 11:38 10/14/17 11:38 - Attending Attestation I examined this patient and my medical decision-making was reviewed with the Resident Physician. I agree with the documented findings, disposition and treatment plan as described except to the extent set forth below.
--- NOTE | 2017-10-14 10:52 | Physician Discharge Referral ---
<Ed John - Last Filed: 10/14/17 10:52> [facility] Referral Info Provider in Charge: Dr. Javier Provider in Charge after Transfer: PCP Institutional Level of Care: Skilled - Diagnosis (1) Acute and chronic respiratory failure with hypoxia Priority: Primary Status: Acute (2) Sepsis Priority: Secondary Status: Resolved (3) Mobitz type 2 second degree AV block Priority: Secondary Status: Acute (4) Pneumonia Priority: Secondary Status: Acute (5) FIORELLA (acute kidney injury) Priority: Secondary Status: Acute (6) DVT prophylaxis Priority: Secondary Status: Acute (7) Elevated troponin Priority: Secondary Status: Acute (8) Lewy body dementia Priority: Secondary Status: Chronic (9) Physical deconditioning Priority: Secondary Status: Acute - Transfer Medications Home Medications: RX: Albuterol Sulfate [Albuterol Inhaler] 2 puff IH Q4H PRN 10/11/17 [History] RX: Atorvastatin Calcium [Lipitor] 20 mg PO DAILY 10/11/17 [History] RX: Ergocalciferol (VITAMIN D2) [Vitamin D2] 50,000 unit PO QMONTH 10/11/17 [ History] RX: Fluticasone Propionate Nasal [Flonase] 2 spray NS DAILY 10/11/17 [History] RX: Fluticasone/Salmeterol [Advair Hfa 45-21 Mcg Inhaler] 1 puff NS BID [History] RX: Ipratropium/Albuterol Neb [Duoneb] 3 ml IH QID PRN 10/11/17 [History] RX: Montelukast [Singulair] 10 mg PO DAILY 10/11/17 [History] RX: amLODIPine [Norvasc] 5 mg PO DAILY 10/11/17 [History] RX: clonazePAM [Klonopin] 0.25 mg PO BID 10/11/17 [History] Allergies/Adverse Reactions: 3 Allergy/AdvReac Type Severity Reaction Status Date / Time No Known Allergies Allergy Verified 10/10/17 17:28 - Respiratory Orders Oxygen / L per min (3) Smoking Cessation: Smoking cessation has been advised. For more information, call the [employer] Tobacco Quit Line at 3-021-TTBF-NOW. - Ancillary Orders May use pressure relief devices daily prn - Advance Directives Code Status: DNR-Arrest/Don't Intubate - Mobility Orders Chair, Other - Rehabiliation Orders Rehab Potential: Fair Rehab Orders: Evaluation for Physical Therapy, Evaluation for Occupational Therapy - Treatments Skin tear care topically daily PRN per policy - Diet Orders Cardiac CERTIFICATION: I certify that the transfer of the above named patient to an Extended Care Facility is necessary for the continuing treatment of the diagnosis listed. The above information is true and accurate reflection of patient's current condition. Confidential - Redisclosure prohibited without a patient's written consent. <Eric Heiwtt - Last Filed: 10/14/17 13:02> - Respiratory Orders Smoking Cessation: Smoking cessation has been advised. For more information, call the [place] Tobacco Quit Line at 0-749-YHFV-NOW. CERTIFICATION: I certify that the transfer of the above named patient to an Extended Care Facility is necessary for the continuing treatment of the diagnosis listed. The above information is true and accurate reflection of patient's current condition. Confidential - Redisclosure prohibited without a patient's written consent.
[2017-10-14] MEDS: Azithromycin 250 MG TABLET PO SCH (19:52)
[2017-10-15] MEDS: Ipratropium/Albuterol Neb 3 ML IH SCH ×6 (04:26→23:30)
[2017-10-15] MEDS: 0.9 % Sodium Chloride 1,000 ML IVC SCH (05:39)
[2017-10-15] MEDS: *HR* Heparin 5,000 UNIT/ML VIAL SQ SCH ×2 (05:42→17:38)
--- NOTE | 2017-10-15 07:35 | Internal Med Progress Note ---
<Ed John - Last Filed: 10/15/17 07:33> Date of Encounter: 10/15/17 Time of Encounter: 07:33 - Assessment and plan (1) Acute and chronic respiratory failure with hypoxia Current Visit: Yes Status: Resolved Assessment and plan: in setting of new 2nd degree AV block mobitz II, PNA, ADHF and hx of COPD qualified for 3L O2 finished 5 days of antibiotics for CAP continue duonoeb, supplemental O2 awaiting ecf placement. (2) Sepsis Current Visit: Yes Status: Resolved Assessment and plan: suspected 2nd to PNA resolved Complete antibiotic therapy. Qualifiers: Sepsis type: sepsis due to unspecified organism Qualified Code(s): A41.9 - Sepsis, unspecified organism (3) Mobitz type 2 second degree AV block Current Visit: Yes Status: Acute Assessment and plan: s/p pacemaker placement rate is controlled device check wnl follow up with cardiology outpatient. (4) Pneumonia Current Visit: Yes Status: Acute Assessment and plan: completed antibiotic therapy for bacterial community aquired pneumonia. Qualifiers: Pneumonia type: due to unspecified organism Laterality: unspecified laterality Lung location: unspecified part of lung Qualified Code(s): J18.9 - Pneumonia, unspecified organism (5) FIORELLA (acute kidney injury) Current Visit: Yes Status: Acute Assessment and plan: Resolved. (6) DVT prophylaxis Current Visit: Yes Status: Acute Assessment and plan: heparin SQ (7) Elevated troponin Current Visit: Yes Status: Acute Assessment and plan: adynamic in setting of av block mobitz II, ADHF, and fiorella no chest pain EF 65% and no wall motion abnormalities, no valvular dysfunction Status post pacemaker placement Continue aspirin, statin. (8) Lewy body dementia Current Visit: Yes Status: Chronic Assessment and plan: Stable Alert Oriented to self and time Not oriented to situation or place. Family says patient is at baseline mental status. She does not take any medications for this at home. Qualifiers: Dementia behavioral disturbance: without behavioral disturbance Qualified Code(s): G31.83 - Dementia with Lewy bodies; F02.80 - Dementia in other diseases classified elsewhere without behavioral disturbance; F02.80 - Dementia in other diseases classified elsewhere without behavioral disturbance; F02.80 - Dementia in other diseases classified elsewhere without behavioral disturbance (9) Physical deconditioning Current Visit: Yes Status: Acute Assessment and plan: Patient has unsteady gait. Patient becomes hypoxic with walking. PT OT recommended placement for physical rehabilitation. Awaiting placement. - Subjective Interval history: Patient laying in bed comfortably. awaiting ECF placement. NO acute overnight events. - Constitutional Vitals: Temp Pulse Resp BP Pulse Ox 98 F 80 24 176/68 99 10/15/17 07:09 10/15/17 07:09 10/15/17 07:09 10/15/17 07:09 10/15/17 07:09 General appearance: Present: cooperative, mild distress (respiratory) - Other Additional findings: General: Pleasant without distress Heart: Regular rate and rhythm with no murmur Lungs: diminished b/l Abdomen: Soft nontender, nondistended positive bowel sounds Skin: warm and dry Extremities: 1+ pedal edema b/l Neuro: alert to self and time. not place or situation. Vascular: Pedal and radial pulses 2 out of 4 Internal Medicine: Result - Labs CBC & Chem 7: 10/13/17 04:00 10/14/17 03:15 - ABG Interpretation ABG results: ABG ABG pH 7.36 pH Units (7.32-7.45) 10/11/17 04:13 ABG pCO2 45 mmHg (35-45) 10/11/17 04:13 ABG pO2 96 mmHg (85-104) 10/11/17 04:13 ABG O2 Saturation 97 % (95-98) 10/11/17 04:13 PT/INR, D-dimer PT 11.8 Seconds (9.4-12.1) 10/11/17 03:33 - VTE Documentation of Mechanical Device: Intermittent pneumatic compression device Consult Discharge Plan - Plan Instructions: Pacemaker (DC), Chronic Hypertension (DC), Pneumonia (DC) Referrals: check,wound [Other] - 10/22/17 3:00 pm Device,check [Other] - 11/13/17 3:00 pm Cuong Zuleta MD [Partnered Physician] - 01/20/18 2:30 pm Jocelyn Dean MD [Primary Care Provider] - (waiting for placement...) <Yaya-Eric South - Last Filed: 10/15/17 09:49> Date of Encounter: 10/15/17 - Constitutional Vitals: Temp Pulse Resp BP Pulse Ox 98 F 80 24 176/68 98 10/15/17 07:09 10/15/17 07:09 10/15/17 07:50 10/15/17 07:09 10/15/17 07:50 Internal Medicine: Result - Labs CBC & Chem 7: 10/13/17 04:00 10/14/17 03:15 - ABG Interpretation ABG results: ABG ABG pH 7.36 pH Units (7.32-7.45) 10/11/17 04:13 ABG pCO2 45 mmHg (35-45) 10/11/17 04:13 ABG pO2 96 mmHg (85-104) 10/11/17 04:13 ABG O2 Saturation 97 % (95-98) 10/11/17 04:13 PT/INR, D-dimer PT 11.8 Seconds (9.4-12.1) 10/11/17 03:33 - Attending Attestation I examined this patient and my medical decision-making was reviewed with the Resident Physician. I agree with the documented findings, disposition and treatment plan as described except to the extent set forth below. I have seen and examined the patient. Sitting up comfortably. Not in any distress. Patient seems to be back to baseline. No new events or complaints. Stable for discharge to ECF today.
[2017-10-15] MEDS: cefTRIAXone 1,000 MG in Water for inj. (sterile) 10 ML IVP SCH (09:04)
[2017-10-15] MEDS: clonazePAM 0.5 MG TABLET PO SCH ×2 (09:04→20:03)
[2017-10-16] MEDS: Ipratropium/Albuterol Neb 3 ML IH SCH ×3 (04:27→11:09)
[2017-10-16] MEDS: *HR* Heparin 5,000 UNIT/ML VIAL SQ SCH (05:50)
[2017-10-16] MEDS: cefTRIAXone 1,000 MG in Water for inj. (sterile) 10 ML IVP SCH (08:07)
[2017-10-16] MEDS: clonazePAM 0.5 MG TABLET PO SCH (08:08)
--- NOTE | 2017-10-16 08:40 | Internal Med Progress Note ---
<Ed John - Last Filed: 10/16/17 08:37> Date of Encounter: 10/16/17 Time of Encounter: 08:37 - Assessment and plan (1) Acute and chronic respiratory failure with hypoxia Current Visit: Yes Status: Resolved Assessment and plan: in setting of new 2nd degree AV block mobitz II, PNA, ADHF and hx of COPD qualified for 3L O2 finished 5 days of antibiotics for CAP continue duonoeb, supplemental O2 still awaiting ecf placement. (2) Sepsis Current Visit: Yes Status: Resolved Assessment and plan: suspected 2nd to PNA resolved Complete antibiotic therapy. Qualifiers: Sepsis type: sepsis due to unspecified organism Qualified Code(s): A41.9 - Sepsis, unspecified organism (3) Mobitz type 2 second degree AV block Current Visit: Yes Status: Acute Assessment and plan: s/p pacemaker placement rate is controlled device check wnl follow up with cardiology outpatient. (4) Pneumonia Current Visit: Yes Status: Acute Assessment and plan: completed antibiotic therapy for bacterial community aquired pneumonia. Respiratory status stable. Shortness of breath. Awaiting ECF placement. Qualifiers: Pneumonia type: due to unspecified organism Laterality: unspecified laterality Lung location: unspecified part of lung Qualified Code(s): J18.9 - Pneumonia, unspecified organism (5) FIORELLA (acute kidney injury) Current Visit: Yes Status: Acute Assessment and plan: Resolved. (6) DVT prophylaxis Current Visit: Yes Status: Acute Assessment and plan: heparin SQ (7) Elevated troponin Current Visit: Yes Status: Acute Assessment and plan: adynamic in setting of av block mobitz II, ADHF, and fiorella no chest pain EF 65% and no wall motion abnormalities, no valvular dysfunction Status post pacemaker placement Continue aspirin, statin. (8) Lewy body dementia Current Visit: Yes Status: Chronic Assessment and plan: Stable Alert Oriented to self and time Not oriented to situation or place. Family says patient is at baseline mental status. She does not take any medications for this at home. Qualifiers: Dementia behavioral disturbance: without behavioral disturbance Qualified Code(s): G31.83 - Dementia with Lewy bodies; F02.80 - Dementia in other diseases classified elsewhere without behavioral disturbance; F02.80 - Dementia in other diseases classified elsewhere without behavioral disturbance; F02.80 - Dementia in other diseases classified elsewhere without behavioral disturbance (9) Physical deconditioning Current Visit: Yes Status: Acute Assessment and plan: Patient has unsteady gait. Patient becomes hypoxic with walking. PT OT recommended placement for physical rehabilitation. patient getting up in chair and also walking with assistance. Awaiting placement. - Subjective Interval history: Patient laying in bed comfortably. awaiting ECF placement. NO acute overnight events. - Constitutional Vitals: Temp Pulse Resp BP Pulse Ox 97.7 F 91 27 129/87 95 10/16/17 07:00 10/16/17 07:00 10/16/17 07:00 10/16/17 07:00 10/16/17 07:00 General appearance: Present: cooperative, mild distress (respiratory) - Other Additional findings: General: without distress, Heart: Regular rate and rhythm with no murmur. Paced rhythm Lungs: Diminished, wheezing improved from yesterday. Abdomen: Soft nontender, nondistended positive bowel sounds Skin: warm and dry Extremities: Absent pedal edema, Neuro: Alert to self, place Vascular: Pedal and radial pulses 2 out of 4 Internal Medicine: Result - Labs CBC & Chem 7: 10/13/17 04:00 10/14/17 03:15 - ABG Interpretation ABG results: ABG ABG pH 7.36 pH Units (7.32-7.45) 10/11/17 04:13 ABG pCO2 45 mmHg (35-45) 10/11/17 04:13 ABG pO2 96 mmHg (85-104) 10/11/17 04:13 ABG O2 Saturation 97 % (95-98) 10/11/17 04:13 PT/INR, D-dimer PT 11.8 Seconds (9.4-12.1) 10/11/17 03:33 - VTE Documentation of Mechanical Device: Intermittent pneumatic compression device Consult Discharge Plan - Plan Instructions: Pacemaker (DC), Chronic Hypertension (DC), Pneumonia (DC) Referrals: check,wound [Other] - 10/22/17 3:00 pm Device,check [Other] - 11/13/17 3:00 pm Cuong Zuleta MD [Partnered Physician] - 01/20/18 2:30 pm Jocelyn Dean MD [Primary Care Provider] - (waiting for placement...) <Yaya-Eric South - Last Filed: 10/16/17 10:57> Date of Encounter: 10/16/17 - Constitutional Vitals: Temp Pulse Resp BP Pulse Ox 97.7 F 91 16 129/87 92 10/16/17 07:00 10/16/17 07:00 10/16/17 07:33 10/16/17 07:33 10/16/17 07:33 Internal Medicine: Result - Labs CBC & Chem 7: 10/13/17 04:00 10/14/17 03:15 - ABG Interpretation ABG results: ABG ABG pH 7.36 pH Units (7.32-7.45) 10/11/17 04:13 ABG pCO2 45 mmHg (35-45) 10/11/17 04:13 ABG pO2 96 mmHg (85-104) 10/11/17 04:13 ABG O2 Saturation 97 % (95-98) 10/11/17 04:13 PT/INR, D-dimer PT 11.8 Seconds (9.4-12.1) 10/11/17 03:33 - Attending Attestation I examined this patient and my medical decision-making was reviewed with the Resident Physician. I agree with the documented findings, disposition and treatment plan as described except to the extent set forth below. I have seen and examined the patient. No acute events or complaints. She is awake and alert. Tolerating oral diet well. Stable for discharge to ECF today. Lungs bilateral air entry no wheezes or crackles. Abdomen soft nontender.
[2017-10-16 12:02] VITALS: BP 150/82
== END 2017-10-16 12:46 | DRG 871 ==
LOC: EMEROO 17:25 → ICNU 19:50 → 2ANU 10-12 19:54
PROVIDERS: ADMIT Internal Medicine Hematology & Oncology; ATTEND Internal Medicine Hematology & Oncology

== ENCOUNTER 2019-12-03 13:52 | Inpatient (IN) ==
[2019-12-03] MEDS ORDERED: Ipratropium/Albuterol Neb 3 ML IH ONE ×2 (14:10→14:20)
[2019-12-03] MEDS ORDERED: methylPREDNISolone 125 MG/2 ML VIAL IVP ONE (14:13)
[2019-12-03 15:00] LABS: Calcium 9.1 mg/dL (8.6-10.3); Potassium 4.5 mEq/L (3.5-5.1)
[2019-12-03 15:09] LABS: Basophils # 0.1 K/mcL (0.0-0.2); Basophils % 0.6 %; Eosinophils # 0.3 K/mcL (0.0-0.6); Eosinophils % 2.5 %; Hematocrit 38.5 % (35.3-44.9); Hemoglobin 11.7 g/dL (11.5-15.4); Immature Granulocytes % 0.7 % (0-4); Lymphocytes # 1.2 K/mcL (0.6-4.6); Lymphocytes % 11.5 %; Mean Corpuscular HGB Conc 30.4 g/dL (31.6-35.5); Mean Corpuscular Volume 88.7 fL (83.0-100.0); Mean Platelet Volume 9.9 fL (9.4-12.4); Monocytes # 0.6 K/mcL (0.0-1.3); Monocytes % 5.5 %; Neutrophils # 8.3 K/mcL (1.6-8.9); Platelet Count 290 K/mcL (140-400); Red Blood Count 4.34 M/mcL (3.82-4.97); Red Cell Distribution Width 14.2 % (11.5-14.5); Segmented Neutrophils % 79.2 %; White Blood Count 10.5 K/mcL (4.3-11.1)
[2019-12-03] MEDS ORDERED: Naloxone 0.4 MG/ML INJ IVP PRN (15:31)
[2019-12-03] MEDS ORDERED: Acetaminophen 325 MG TABLET PO PRN (15:31)
[2019-12-03] MEDS ORDERED: Ipratropium/Albuterol Neb 3 ML IH PRN (15:34)
[2019-12-03] MEDS ORDERED: *HR* Dextrose 50 % in Water (Syg) 50 ML SYRINGE IVP PRN (16:16)
[2019-12-03] MEDS ORDERED: D5% in Water 1,000 ML IVC PRN (16:16)
[2019-12-03] MEDS ORDERED: Dextrose Gel 15 GM/37.5 ML TUBE PO PRN ×2 (16:16)
[2019-12-03] MEDS: MethylPREDNISolone 40 MG/ML VIAL IVP SCH (16:24)
[2019-12-03] MEDS: Insulin LISPRO 300 UNITS/3 ML VIAL SQ SCH (17:04)
[2019-12-03] MEDS: Azithromycin 500 MG in 0.9 % Sodium Chloride 250 ML IVPB SCH (17:23)
[2019-12-03 18:15] LABS: Adenovirus Not Detected (Not Detect); Coronavirus 229E Not Detected (Not Detect); Coronavirus HKU1 DETECTED (Not Detect)
[2019-12-03 18:16] LABS: Bordetella Pertussis Not Detected (Not Detect); Chlamydophila pneumoniae Not Detected (Not Detect); Coronavirus NL63 Not Detected (Not Detect); Coronavirus OC43 Not Detected (Not Detect); Human Metapneumovirus Not Detected (Not Detect); Human Rhinovirus/Enterovirus Not Detected (Not Detect); Influenza A Subtype 2009 H1 Not Detected (Not Detect); Influenza B Not Detected (Not Detect); Mycoplasma pneumoniae Not Detected (Not Detect); Parainfluenza Virus 1 Not Detected (Not Detect); Parainfluenza Virus 2 Not Detected (Not Detect); Parainfluenza Virus 3 Not Detected (Not Detect); Parainfluenza Virus 4 Not Detected (Not Detect); Respiratory Syncytial Virus Not Detected (Not Detect)
[2019-12-03] MEDS: *HR* Heparin 5,000 UNIT/ML VIAL SQ SCH (23:08)
[2019-12-04] MEDS: Insulin LISPRO 300 UNITS/3 ML VIAL SQ SCH ×5 (00:44→21:55)
[2019-12-04] MEDS: MethylPREDNISolone 40 MG/ML VIAL IVP SCH ×4 (00:55→23:10)
[2019-12-04 02:03] LABS: Basophils % 0.1 %; Eosinophils % 0.1 %; Hematocrit 36.8 % (35.3-44.9); Hemoglobin 10.7 g/dL (11.5-15.4); Immature Granulocytes % 0.6 % (0-4); Lymphocytes # 0.6 K/mcL (0.6-4.6); Lymphocytes % 6.8 %; Mean Corpuscular HGB Conc 29.1 g/dL (31.6-35.5); Mean Corpuscular Hemoglobin 27.1 pg (28.0-33.3); Mean Corpuscular Volume 93.2 fL (83.0-100.0); Mean Platelet Volume 10.2 fL (9.4-12.4); Monocytes # 0.1 K/mcL (0.0-1.3); Monocytes % 0.5 %; Platelet Count 263 K/mcL (140-400); Red Blood Count 3.95 M/mcL (3.82-4.97); Red Cell Distribution Width 14.2 % (11.5-14.5); Segmented Neutrophils % 91.9 %; White Blood Count 9.3 K/mcL (4.3-11.1)
[2019-12-04 02:07] LABS: Prothrombin Time 11.9 Seconds (9.4-12.1)
[2019-12-04 02:08] LABS: Neutrophils # 8.6 K/mcL (1.6-8.9)
[2019-12-04 02:10] LABS: Activated Partial Thrombo Time 25.4 Seconds (26.0-36.0)
[2019-12-04 02:25] LABS: Platelet Estimate Normal (Normal)
[2019-12-04] MEDS: *HR* Heparin 5,000 UNIT/ML VIAL SQ SCH ×3 (05:40→21:56)
[2019-12-04 07:04] LABS: BUN/Creatinine Ratio 25 (6-26); Blood Urea Nitrogen 26 mg/dL (8-23); Calcium 8.5 mg/dL (8.6-10.3); Carbon Dioxide 29 mEq/L (23-29); Chloride 103 mEq/L (98-107); Glucose 127 mg/dL (70-105); Magnesium 2.2 mg/dL (1.6-2.6); Osmolality,Calculated 298 (280-300); Phosphorous 4.2 mg/dL (2.7-4.5); Potassium 5.1 mEq/L (3.5-5.1); Sodium 141 mEq/L (136-145); eGFR For African Americans > 60 (> 60); eGFR For Non-African Americans 50 (> 60)
[2019-12-04] MEDS: Aspirin Enteric Coated 81 MG Tablet PO SCH (07:18)
[2019-12-04] MEDS: Topiramate 25 MG TABLET PO SCH (07:18)
[2019-12-04] MEDS: amLODIPine 5 MG TABLET PO SCH (07:18)
[2019-12-04] MEDS: Fluticasone Propionate Nasal 50 MCG/SPRAY BOTTLE NS SCH (07:20)
[2019-12-04] MEDS ORDERED: NON-FORMULARY MEDICATION 1 EACH EACH (Omega-3s/Dha/Epa/Fish Oil [Fish Oil 1,200 Mg Softgel PO SCH (09:00)
[2019-12-04] MEDS: Azithromycin 500 MG in 0.9 % Sodium Chloride 250 ML IVPB SCH (16:07)
[2019-12-05] MEDS: *HR* Heparin 5,000 UNIT/ML VIAL SQ SCH ×3 (05:52→21:51)
[2019-12-05] MEDS: Insulin LISPRO 300 UNITS/3 ML VIAL SQ SCH ×4 (07:28→21:51)
[2019-12-05] MEDS: amLODIPine 5 MG TABLET PO SCH (07:34)
[2019-12-05] MEDS: Topiramate 25 MG TABLET PO SCH (07:34)
[2019-12-05] MEDS: Aspirin Enteric Coated 81 MG Tablet PO SCH (07:34)
[2019-12-05] MEDS: MethylPREDNISolone 40 MG/ML VIAL IVP SCH ×2 (07:34→15:50)
[2019-12-05] MEDS: Fluticasone Propionate Nasal 50 MCG/SPRAY BOTTLE NS SCH (07:34)
[2019-12-05] MEDS: Ipratropium/Albuterol Neb 3 ML IH SCH ×4 (11:43→23:22)
[2019-12-05] MEDS: Azithromycin 500 MG in 0.9 % Sodium Chloride 250 ML IVPB SCH (15:50)
[2019-12-06] MEDS: Ipratropium/Albuterol Neb 3 ML IH SCH ×3 (03:51→11:57)
[2019-12-06] MEDS: *HR* Heparin 5,000 UNIT/ML VIAL SQ SCH ×2 (06:03→12:18)
[2019-12-06] MEDS: Insulin LISPRO 300 UNITS/3 ML VIAL SQ SCH ×2 (07:19→11:48)
[2019-12-06] MEDS: Aspirin Enteric Coated 81 MG Tablet PO SCH (07:26)
[2019-12-06] MEDS: amLODIPine 5 MG TABLET PO SCH (07:26)
[2019-12-06] MEDS: Topiramate 25 MG TABLET PO SCH (07:27)
[2019-12-06] MEDS: Fluticasone Propionate Nasal 50 MCG/SPRAY BOTTLE NS SCH (07:27)
[2019-12-06] MEDS ORDERED: Azithromycin 250 MG TABLET PO SCH (09:00)
[2019-12-06] MEDS ORDERED: predniSONE 20 MG TABLET PO SCH (09:00)
[2019-12-06 11:48] VITALS: BP 145/93
== END 2019-12-06 13:20 | disposition home or self-care (01) | DRG 191 ==
LOC: 2ANU 13:52 → EMEROOARM 13:52 → SUATTDRO 15:37 → 2ANU 15:58
PROVIDERS: ADMIT Internal Medicine; ATTEND Family Medicine

== ENCOUNTER 2021-08-25 19:12 | Observation (INO) ==
[2021-08-25 21:46] LABS: Basophils % 0.2 %; Eosinophils # 0.1 K/mcL (0.0-0.6); Eosinophils % 0.6 %; Hematocrit 35.1 % (35.3-44.9); Immature Granulocytes % 1.2 % (0-4); Lymphocytes # 0.9 K/mcL (0.6-4.6); Lymphocytes % 5.6 %; Mean Corpuscular HGB Conc 31.3 g/dL (31.6-35.5); Mean Corpuscular Hemoglobin 27.6 pg (28.0-33.3); Mean Corpuscular Volume 88.2 fL (83.0-100.0); Mean Platelet Volume 10.1 fL (9.4-12.4); Monocytes % 5.8 %; Neutrophils # 14.1 K/mcL (1.6-8.9); Platelet Count 291 K/mcL (140-400); Red Blood Count 3.98 M/mcL (3.82-4.97); Red Cell Distribution Width 14.3 % (11.5-14.5); Segmented Neutrophils % 86.6 %; White Blood Count 16.3 K/mcL (4.3-11.1)
[2021-08-25 22:06] LABS: Albumin 3.3 g/dL (3.5-5.7); Albumin/Globulin Ratio 0.9 (1.1-2.2); Bilirubin,Direct 0.2 mg/dL (0.0-0.2); Bilirubin,Indirect 0.3 mg/dL (0.0-1.0); Bilirubin,Total 0.5 mg/dL (0.3-1.0); Calcium 8.8 mg/dL (8.6-10.3); Globulin 3.8 g/dL (2.4-3.5); Potassium 3.2 mEq/L (3.5-5.1); Total Protein 7.1 g/dL (6.4-8.9)
[2021-08-25 22:11] LABS: ABG Base Excess 4 mEq/L (-2 to 3); ABG HCO3 30 mEq/L (21-27); ABG Oxygen Saturation 90 % (95-98); ABG PCO2 48 mmHg (35-45); ABG PO2 60 mmHg (85-104); ABG TCO2 31 mEq/L (20-26); Blood Gas Modality 2LPM
[2021-08-25 22:38] LABS: Troponin I 0.04 ng/mL (< 0.04)
[2021-08-25 22:38] LABS: Influenza A PCR Negative (Negative); Influenza B PCR Negative (Negative); Resp. Syncytial Virus PCR Negative (Negative); SARS-CoV-2 by PCR (In House) Negative (Negative)
[2021-08-25] MEDS ORDERED: Furosemide 40 MG/4 ML VIAL IVP ONE (22:44)
[2021-08-25] MEDS ORDERED: Aspirin 325 MG TABLET PO ONE (22:45)
[2021-08-25] MEDS ORDERED: *HR* Heparin 5,000 UNIT/ML VIAL IVP PRN ×2 (23:00)
[2021-08-25] MEDS ORDERED: Heparin 25,000UNIT/250ML 1/2NS 25,000 UNIT/250 ML IV.SOLN IVC SCH (23:00)
[2021-08-25] MEDS ORDERED: *HR* Heparin 5,000 UNIT/ML VIAL IVP ONE (23:00)
[2021-08-25] MEDS ORDERED: cefTRIAXone 1,000 MG in 0.9 % Sodium Chloride Mini Bag 100 ML IVPB ONE (23:01)
[2021-08-25 23:49] LABS: Heparin anti-factor XA UFH < 0.04 IU/mL (0.30-0.70)
[2021-08-25 23:50] LABS: INR 1.1; Prothrombin Time 11.9 Seconds (9.4-12.1)
[2021-08-26] MEDS ORDERED: Perflutren Lipid Microsphere 1.3 ML in 0.9 % Sodium Chloride 8.7 ML IVP PRN (00:45)
[2021-08-26] MEDS ORDERED: cefTRIAXone 1,000 MG in Water for inj. (sterile) 10 ML IVP ONE (01:00)
[2021-08-26] MEDS: Azithromycin 250 MG TABLET PO SCH (02:12)
[2021-08-26 03:06] LABS: Basophils % 0.1 %; Eosinophils # 0.2 K/mcL (0.0-0.6); Eosinophils % 1.3 %; Hematocrit 35.9 % (35.3-44.9); Hemoglobin 11.3 g/dL (11.5-15.4); Immature Granulocytes % 0.6 % (0-4); Lymphocytes # 1.6 K/mcL (0.6-4.6); Lymphocytes % 10.3 %; Mean Corpuscular HGB Conc 31.5 g/dL (31.6-35.5); Mean Corpuscular Hemoglobin 28.2 pg (28.0-33.3); Mean Corpuscular Volume 89.5 fL (83.0-100.0); Mean Platelet Volume 10.1 fL (9.4-12.4); Monocytes % 6.2 %; Neutrophils # 12.7 K/mcL (1.6-8.9); Platelet Count 273 K/mcL (140-400); Red Blood Count 4.01 M/mcL (3.82-4.97); Red Cell Distribution Width 14.4 % (11.5-14.5); Segmented Neutrophils % 81.5 %; White Blood Count 15.6 K/mcL (4.3-11.1)
[2021-08-26 03:28] LABS: Magnesium 2.3 mg/dL (1.6-2.6); Phosphorous 3.6 mg/dL (2.7-4.5)
[2021-08-26] MEDS: Budesonide/Formoterol 160/4.5 1 PUFF INH IH SCH ×3 (03:28→20:16)
[2021-08-26] MEDS: Ipratropium/Albuterol Neb 3 ML IH SCH ×6 (04:09→22:46)
[2021-08-26] MEDS: MethylPREDNISolone 40 MG/ML VIAL IVP SCH ×2 (05:04→17:09)
[2021-08-26] MEDS ORDERED: *HR* Dextrose 50 % in Water (Syg) 50 ML SYRINGE IVP PRN (06:05)
[2021-08-26] MEDS ORDERED: D5% in Water 1,000 ML IVC PRN (06:05)
[2021-08-26] MEDS ORDERED: Dextrose Gel 15 GM/37.5 ML TUBE PO PRN ×2 (06:05)
[2021-08-26 06:53] LABS: Bilirubin,Urine Negative (Negative); Blood,Urine Negative (Negative); Clarity,Urine Clear (Clear); Color,Urine Colorless (Yellow); Glucose,Urine (UA) Normal (Normal); Ketones,Urine Negative (Negative); Leukocyte Esterase,Urine Negative (Negative); Nitrite,Urine Negative (Negative); Protein,Urine Negative (Neg-Trace); Specific Gravity,Urine 1.009 (1.010-1.025); Urobilinogen,Urine Normal (Normal)
[2021-08-26] MEDS ORDERED: Albumin 25% 25gram/100mL 25 GM/100 ML IV.SOLN IVC SCH (07:00)
[2021-08-26 07:06] LABS: Sodium, Urine 101.8 mEq/L
[2021-08-26] MEDS: Aspirin 81 MG TAB.CHEW PO SCH (08:37)
[2021-08-26] MEDS: Chlorhexidine Rinse 15 ML MOUTHWASH MM SCH ×2 (08:38→20:01)
[2021-08-26] MEDS: Lactobacillus 1 EACH CAP.SPRINK PO SCH ×2 (08:38→20:01)
[2021-08-26] MEDS ORDERED: Furosemide 20 MG/2 ML VIAL IVP ONE (09:00)
[2021-08-26] MEDS: *HR* Heparin 5,000 UNIT/ML VIAL SQ SCH (17:09)
[2021-08-27] MEDS: Ipratropium/Albuterol Neb 3 ML IH SCH ×3 (03:26→11:19)
[2021-08-27] MEDS: MethylPREDNISolone 40 MG/ML VIAL IVP SCH (05:20)
[2021-08-27] MEDS: *HR* Heparin 5,000 UNIT/ML VIAL SQ SCH (05:21)
[2021-08-27] MEDS: Budesonide/Formoterol 160/4.5 1 PUFF INH IH SCH (07:30)
[2021-08-27 08:44] VITALS: BP 131/51; PULSE 88; TEMP 97.9; O2SAT 90
[2021-08-27] MEDS ORDERED: cefTRIAXone 2,000 MG in Water for inj. (sterile) 20 ML IVP SCH (09:00)
[2021-08-27] MEDS: Chlorhexidine Rinse 15 ML MOUTHWASH MM SCH (09:21)
[2021-08-27] MEDS: Aspirin 81 MG TAB.CHEW PO SCH (09:21)
[2021-08-27] MEDS: Azithromycin 250 MG TABLET PO SCH (09:21)
[2021-08-27] MEDS: Lactobacillus 1 EACH CAP.SPRINK PO SCH (09:22)
== END 2021-08-27 13:09 | disposition home health service (06) ==
LOC: EMEROOARM 19:12 → 2NENU 19:12 → SUATTDRO 08-26 00:31 → 2NENU 08-26 01:32
PROVIDERS: ADMIT Family Medicine; ATTEND Internal Medicine

== ENCOUNTER 2021-09-04 13:59 | Inpatient (IN) ==
[2021-09-04] MEDS ORDERED: Ipratropium/Albuterol Neb 3 ML ONE (14:22)
[2021-09-04] MEDS ORDERED: Ipratropium/Albuterol Neb 3 ML IH ONE (14:23)
[2021-09-04] MEDS ORDERED: methylPREDNISolone 125 MG/2 ML VIAL IVP ONE (14:24)
[2021-09-04 14:46] LABS: Basophils % 0.1 %; Eosinophils % 0.1 %; Hematocrit 41.4 % (35.3-44.9); Hemoglobin 12.7 g/dL (11.5-15.4); Immature Granulocytes % 0.4 % (0-4); Lymphocytes # 0.6 K/mcL (0.6-4.6); Lymphocytes % 3.8 %; Mean Corpuscular HGB Conc 30.7 g/dL (31.6-35.5); Mean Corpuscular Hemoglobin 28.3 pg (28.0-33.3); Mean Corpuscular Volume 92.2 fL (83.0-100.0); Mean Platelet Volume 10.3 fL (9.4-12.4); Monocytes # 0.5 K/mcL (0.0-1.3); Monocytes % 2.9 %; Neutrophils # 15.5 K/mcL (1.6-8.9); Platelet Count 417 K/mcL (140-400); Red Blood Count 4.49 M/mcL (3.82-4.97); Red Cell Distribution Width 14.8 % (11.5-14.5); Segmented Neutrophils % 92.7 %; White Blood Count 16.7 K/mcL (4.3-11.1)
[2021-09-04 14:51] LABS: VBG HCO3 36 mEq/L (21-27); VBG PCO2 91 mmHg (41-51); VBG PO2 53 mmHg (25-50)
[2021-09-04 15:07] LABS: Calcium 9.2 mg/dL (8.6-10.3); Potassium 3.9 mEq/L (3.5-5.1)
[2021-09-04 15:20] LABS: Influenza A PCR Negative (Negative); Influenza B PCR Negative (Negative); Resp. Syncytial Virus PCR Negative (Negative)
[2021-09-04 15:23] LABS: SARS-CoV-2 by PCR (In House) Negative (Negative)
[2021-09-04] MEDS ORDERED: Cefepime HCl 2,000 MG in Water for inj. (sterile) 20 ML IVP STA (15:31)
[2021-09-04] MEDS ORDERED: Azithromycin 500 MG in 0.9 % Sodium Chloride 250 ML IVPB ONE (15:31)
[2021-09-04 16:00] LABS: Troponin I 0.04 ng/mL (< 0.04)
[2021-09-04] MEDS ORDERED: Ondansetron 4 MG/2 ML VIAL IVP PRN (17:50)
[2021-09-04] MEDS ORDERED: Naloxone 0.4 MG/ML INJ IVP PRN (17:50)
[2021-09-04] MEDS ORDERED: levoFLOXacin 750 MG/150 ML 750 MG/150 ML BAG IVPB ONE (19:00)
[2021-09-04] MEDS: Ipratropium/Albuterol Neb 3 ML IH SCH (20:48)
[2021-09-04] MEDS: Budesonide/Formoterol 160/4.5 1 PUFF INH IH SCH (20:48)
[2021-09-04] MEDS ORDERED: Ipratropium/Albuterol Neb 3 ML IH SCH (22:00)
[2021-09-05] MEDS: Ipratropium/Albuterol Neb 3 ML IH SCH ×7 (00:10→23:10)
[2021-09-05 03:07] LABS: Basophils % 0.1 %; Hematocrit 36.2 % (35.3-44.9); Immature Granulocytes % 0.5 % (0-4); Lymphocytes # 0.6 K/mcL (0.6-4.6); Lymphocytes % 4.5 %; Mean Corpuscular HGB Conc 29.6 g/dL (31.6-35.5); Mean Corpuscular Hemoglobin 27.9 pg (28.0-33.3); Mean Corpuscular Volume 94.3 fL (83.0-100.0); Mean Platelet Volume 10.8 fL (9.4-12.4); Monocytes # 0.2 K/mcL (0.0-1.3); Monocytes % 1.2 %; Platelet Count 266 K/mcL (140-400); Red Blood Count 3.84 M/mcL (3.82-4.97); Red Cell Distribution Width 15.1 % (11.5-14.5); Segmented Neutrophils % 93.7 %; White Blood Count 12.8 K/mcL (4.3-11.1)
[2021-09-05 03:09] LABS: Hemoglobin 10.7 g/dL (11.5-15.4)
[2021-09-05 03:31] LABS: Calcium 8.4 mg/dL (8.6-10.3); Magnesium 2.3 mg/dL (1.6-2.6); Potassium 4.3 mEq/L (3.5-5.1)
[2021-09-05] MEDS: MethylPREDNISolone 40 MG/ML VIAL IVP SCH ×2 (05:55→17:28)
[2021-09-05] MEDS: Budesonide/Formoterol 160/4.5 1 PUFF INH IH SCH ×2 (07:32→19:48)
[2021-09-05 09:54] LABS: ABG Base Excess 5 mEq/L (-2 to 3); ABG HCO3 32 mEq/L (21-27); ABG Oxygen Saturation 96 % (95-98); ABG PCO2 61 mmHg (35-45); ABG PH 7.33 pH Units (7.32-7.45); ABG PO2 88 mmHg (85-104); ABG TCO2 34 mEq/L (20-26)
[2021-09-05 18:59] LABS: ABG Base Excess 9 mEq/L (-2 to 3); ABG HCO3 35 mEq/L (21-27); ABG Oxygen Saturation 95 % (95-98); ABG PCO2 55 mmHg (35-45); ABG PH 7.41 pH Units (7.32-7.45); ABG PO2 79 mmHg (85-104); ABG TCO2 37 mEq/L (20-26)
[2021-09-05] MEDS ORDERED: 0.9 % Sodium Chloride 250 ML ONE (20:38)
[2021-09-05] MEDS: Dexmedetomidine HCl 400 MCG/100 ML MLS IVC SCH (20:48)
[2021-09-06] MEDS: Ipratropium/Albuterol Neb 3 ML IH SCH ×6 (03:29→23:26)
[2021-09-06] MEDS: MethylPREDNISolone 40 MG/ML VIAL IVP SCH ×2 (04:58→18:06)
[2021-09-06 05:42] LABS: Basophils % 0.1 %; Eosinophils # 0.1 K/mcL (0.0-0.6); Eosinophils % 0.4 %; Hematocrit 32.3 % (35.3-44.9); Hemoglobin 10.1 g/dL (11.5-15.4); Immature Granulocytes % 0.2 % (0-4); Lymphocytes # 1.6 K/mcL (0.6-4.6); Lymphocytes % 13.4 %; Mean Corpuscular HGB Conc 31.3 g/dL (31.6-35.5); Mean Corpuscular Hemoglobin 28.1 pg (28.0-33.3); Mean Platelet Volume 10.5 fL (9.4-12.4); Monocytes # 0.6 K/mcL (0.0-1.3); Monocytes % 5.2 %; Neutrophils # 9.9 K/mcL (1.6-8.9); Platelet Count 236 K/mcL (140-400); Red Blood Count 3.59 M/mcL (3.82-4.97); Red Cell Distribution Width 15.1 % (11.5-14.5); Segmented Neutrophils % 80.7 %; White Blood Count 12.3 K/mcL (4.3-11.1)
[2021-09-06 06:02] LABS: Calcium 8.7 mg/dL (8.6-10.3); Potassium 3.9 mEq/L (3.5-5.1)
[2021-09-06] MEDS: Budesonide/Formoterol 160/4.5 1 PUFF INH IH SCH ×2 (10:18→19:58)
[2021-09-06] MEDS: LEVOFLOXACIN 500 MG/100 ML MLS IVPB SCH (19:54)
[2021-09-07] MEDS: Ipratropium/Albuterol Neb 3 ML IH SCH ×6 (03:55→23:37)
[2021-09-07] MEDS: MethylPREDNISolone 40 MG/ML VIAL IVP SCH ×2 (05:36→17:26)
[2021-09-07 06:35] LABS: Basophils % 0.1 %; Hematocrit 33.6 % (35.3-44.9); Hemoglobin 10.3 g/dL (11.5-15.4); Immature Granulocytes % 0.2 % (0-4); Lymphocytes # 0.9 K/mcL (0.6-4.6); Lymphocytes % 7.7 %; Mean Corpuscular HGB Conc 30.7 g/dL (31.6-35.5); Mean Corpuscular Hemoglobin 27.7 pg (28.0-33.3); Mean Corpuscular Volume 90.3 fL (83.0-100.0); Mean Platelet Volume 10.8 fL (9.4-12.4); Monocytes # 0.4 K/mcL (0.0-1.3); Monocytes % 3.2 %; Neutrophils # 10.5 K/mcL (1.6-8.9); Platelet Count 221 K/mcL (140-400); Red Blood Count 3.72 M/mcL (3.82-4.97); Red Cell Distribution Width 15.2 % (11.5-14.5); Segmented Neutrophils % 88.8 %; White Blood Count 11.8 K/mcL (4.3-11.1)
[2021-09-07 06:51] LABS: Calcium 8.9 mg/dL (8.6-10.3); Potassium 4.2 mEq/L (3.5-5.1)
[2021-09-07] MEDS: Budesonide/Formoterol 160/4.5 1 PUFF INH IH SCH ×2 (07:34→20:44)
[2021-09-07] MEDS: Dexmedetomidine HCl 400 MCG/100 ML MLS IVC SCH (14:40)
[2021-09-07] MEDS: *HR* Enoxaparin 60 MG/0.6 ML SYRINGE SQ SCH (22:37)
[2021-09-08 02:14] LABS: Hematocrit 33.7 % (35.3-44.9); Hemoglobin 10.5 g/dL (11.5-15.4); Immature Granulocytes % 0.3 % (0-4); Lymphocytes # 0.6 K/mcL (0.6-4.6); Lymphocytes % 6.4 %; Mean Corpuscular HGB Conc 31.2 g/dL (31.6-35.5); Mean Corpuscular Hemoglobin 27.9 pg (28.0-33.3); Mean Corpuscular Volume 89.4 fL (83.0-100.0); Mean Platelet Volume 10.5 fL (9.4-12.4); Monocytes # 0.3 K/mcL (0.0-1.3); Monocytes % 2.8 %; Platelet Count 207 K/mcL (140-400); Red Blood Count 3.77 M/mcL (3.82-4.97); Red Cell Distribution Width 15.2 % (11.5-14.5); Segmented Neutrophils % 90.5 %; White Blood Count 8.8 K/mcL (4.3-11.1)
[2021-09-08 02:34] LABS: Potassium 4.5 mEq/L (3.5-5.1)
[2021-09-08] MEDS: Ipratropium/Albuterol Neb 3 ML IH SCH ×5 (03:24→20:09)
[2021-09-08] MEDS: MethylPREDNISolone 40 MG/ML VIAL IVP SCH ×2 (05:55→17:00)
[2021-09-08] MEDS: Budesonide/Formoterol 160/4.5 1 PUFF INH IH SCH ×2 (07:35→20:09)
[2021-09-08 08:25] LABS: Magnesium 2.6 mg/dL (1.6-2.6)
[2021-09-08 09:56] LABS: ABG Base Excess 8 mEq/L (-2 to 3); ABG HCO3 36 mEq/L (21-27); ABG Oxygen Saturation 96 % (95-98); ABG PCO2 64 mmHg (35-45); ABG PH 7.36 pH Units (7.32-7.45); ABG PO2 91 mmHg (85-104); ABG TCO2 38 mEq/L (20-26); Blood Gas Modality BiLevel
[2021-09-08] MEDS: Topiramate 25 MG TABLET PO SCH (17:00)
[2021-09-08] MEDS: Dexmedetomidine HCl 400 MCG/100 ML MLS IVC SCH ×2 (20:26→20:30)
[2021-09-08] MEDS: LEVOFLOXACIN 500 MG/100 ML MLS IVPB SCH (20:31)
[2021-09-08] MEDS: *HR* Enoxaparin 60 MG/0.6 ML SYRINGE SQ SCH (20:32)
[2021-09-09] MEDS: Ipratropium/Albuterol Neb 3 ML IH SCH ×7 (00:29→23:39)
[2021-09-09] MEDS: MethylPREDNISolone 40 MG/ML VIAL IVP SCH ×2 (05:13→17:15)
[2021-09-09] MEDS: Budesonide/Formoterol 160/4.5 1 PUFF INH IH SCH ×2 (07:37→19:42)
[2021-09-09 07:58] LABS: Basophils % 0.1 %; Eosinophils % 0.1 %; Hematocrit 35.8 % (35.3-44.9); Hemoglobin 10.7 g/dL (11.5-15.4); Immature Granulocytes % 0.6 % (0-4); Lymphocytes # 0.7 K/mcL (0.6-4.6); Lymphocytes % 7.2 %; Mean Corpuscular HGB Conc 29.9 g/dL (31.6-35.5); Mean Corpuscular Hemoglobin 27.3 pg (28.0-33.3); Mean Corpuscular Volume 91.3 fL (83.0-100.0); Mean Platelet Volume 10.9 fL (9.4-12.4); Monocytes # 0.5 K/mcL (0.0-1.3); Monocytes % 4.9 %; Neutrophils # 8.2 K/mcL (1.6-8.9); Platelet Count 174 K/mcL (140-400); Red Blood Count 3.92 M/mcL (3.82-4.97); Red Cell Distribution Width 15.4 % (11.5-14.5); Segmented Neutrophils % 87.1 %; White Blood Count 9.4 K/mcL (4.3-11.1)
[2021-09-09 08:08] LABS: Calcium 9.1 mg/dL (8.6-10.3); Potassium 4.7 mEq/L (3.5-5.1)
[2021-09-09] MEDS ORDERED: *HR* Dextrose 50 % in Water (Syg) 50 ML SYRINGE IVP PRN (11:55)
[2021-09-09] MEDS ORDERED: D5% in Water 1,000 ML IVC PRN (11:55)
[2021-09-09] MEDS ORDERED: Dextrose Gel 15 GM/37.5 ML TUBE PO PRN ×2 (11:55)
[2021-09-09] MEDS: Insulin LISPRO 300 UNITS/3 ML VIAL SUBQ SCH ×2 (13:19→17:15)
[2021-09-09] MEDS: Topiramate 25 MG TABLET PO SCH (17:14)
[2021-09-09] MEDS: *HR* Enoxaparin 30 MG/0.3 ML SYRINGE SQ SCH (17:14)
[2021-09-09] MEDS ORDERED: LEVOFLOXACIN 500 MG/100 ML MLS IVPB SCH (18:00)
[2021-09-09] MEDS: Dexmedetomidine HCl 400 MCG/100 ML MLS IVC SCH (19:06)
[2021-09-10 02:01] LABS: Basophils % 0.1 %; Hematocrit 37.6 % (35.3-44.9); Hemoglobin 11.4 g/dL (11.5-15.4); Immature Granulocytes % 0.3 % (0-4); Lymphocytes # 0.5 K/mcL (0.6-4.6); Lymphocytes % 4.5 %; Mean Corpuscular HGB Conc 30.3 g/dL (31.6-35.5); Mean Corpuscular Hemoglobin 27.5 pg (28.0-33.3); Mean Corpuscular Volume 90.6 fL (83.0-100.0); Mean Platelet Volume 10.8 fL (9.4-12.4); Monocytes # 0.4 K/mcL (0.0-1.3); Monocytes % 3.1 %; Neutrophils # 10.9 K/mcL (1.6-8.9); Nucleated Red Blood Cells 0.2 /100 WBC (0); Platelet Count 202 K/mcL (140-400); Red Blood Count 4.15 M/mcL (3.82-4.97); Red Cell Distribution Width 15.6 % (11.5-14.5); White Blood Count 11.9 K/mcL (4.3-11.1)
[2021-09-10] MEDS: Ipratropium/Albuterol Neb 3 ML IH SCH ×6 (03:59→22:58)
[2021-09-10] MEDS: MethylPREDNISolone 40 MG/ML VIAL IVP SCH ×2 (05:49→18:11)
[2021-09-10 06:30] LABS: Calcium 9.1 mg/dL (8.6-10.3); Potassium 4.7 mEq/L (3.5-5.1)
[2021-09-10] MEDS: Budesonide/Formoterol 160/4.5 1 PUFF INH IH SCH ×2 (07:17→20:06)
[2021-09-10] MEDS: Insulin LISPRO 300 UNITS/3 ML VIAL SUBQ SCH ×3 (08:22→16:32)
[2021-09-10] MEDS: *HR* Enoxaparin 30 MG/0.3 ML SYRINGE SQ SCH (18:11)
[2021-09-10] MEDS: Topiramate 25 MG TABLET PO SCH (18:11)
[2021-09-11 03:17] LABS: Basophils % 0.1 %; Hematocrit 34.4 % (35.3-44.9); Hemoglobin 10.5 g/dL (11.5-15.4); Immature Granulocytes % 0.3 % (0-4); Lymphocytes # 0.5 K/mcL (0.6-4.6); Mean Corpuscular HGB Conc 30.5 g/dL (31.6-35.5); Mean Corpuscular Hemoglobin 27.8 pg (28.0-33.3); Mean Platelet Volume 11.4 fL (9.4-12.4); Monocytes # 0.2 K/mcL (0.0-1.3); Monocytes % 2.1 %; Neutrophils # 8.2 K/mcL (1.6-8.9); Platelet Count 159 K/mcL (140-400); Red Blood Count 3.78 M/mcL (3.82-4.97); Red Cell Distribution Width 15.7 % (11.5-14.5); Segmented Neutrophils % 91.5 %; White Blood Count 8.9 K/mcL (4.3-11.1)
[2021-09-11] MEDS: Ipratropium/Albuterol Neb 3 ML IH SCH ×5 (03:27→20:54)
[2021-09-11 03:37] LABS: BUN/Creatinine Ratio 83 (6-26); Blood Urea Nitrogen 84 mg/dL (8-23); Calcium 9.1 mg/dL (8.6-10.3); Carbon Dioxide 37 mEq/L (23-29); Chloride 101 mEq/L (98-107); Glucose 168 mg/dL (70-105); Osmolality,Calculated 321 (280-300); Potassium 4.5 mEq/L (3.5-5.1); Sodium 141 mEq/L (136-145); eGFR For African Americans > 60 (> 60); eGFR For Non-African Americans 52 (> 60)
[2021-09-11] MEDS: MethylPREDNISolone 40 MG/ML VIAL IVP SCH (05:48)
[2021-09-11] MEDS: Budesonide/Formoterol 160/4.5 1 PUFF INH IH SCH ×2 (07:31→20:54)
[2021-09-11] MEDS: Insulin LISPRO 300 UNITS/3 ML VIAL SUBQ SCH ×3 (08:33→16:41)
[2021-09-11] MEDS: Topiramate 25 MG TABLET PO SCH (16:42)
[2021-09-11] MEDS: *HR* Enoxaparin 30 MG/0.3 ML SYRINGE SQ SCH (16:42)
[2021-09-12] MEDS: Ipratropium/Albuterol Neb 3 ML IH SCH ×4 (04:09→22:31)
[2021-09-12 05:16] LABS: Hematocrit 36.5 % (35.3-44.9); Hemoglobin 11.1 g/dL (11.5-15.4); Mean Corpuscular HGB Conc 30.4 g/dL (31.6-35.5); Mean Corpuscular Volume 91.9 fL (83.0-100.0); Mean Platelet Volume 11.2 fL (9.4-12.4); Platelet Count 155 K/mcL (140-400); Red Blood Count 3.97 M/mcL (3.82-4.97); Red Cell Distribution Width 15.7 % (11.5-14.5); White Blood Count 10.9 K/mcL (4.3-11.1)
[2021-09-12 05:32] LABS: BUN/Creatinine Ratio 82 (6-26); Blood Urea Nitrogen 81 mg/dL (8-23); Calcium 9.3 mg/dL (8.6-10.3); Carbon Dioxide 37 mEq/L (23-29); Chloride 102 mEq/L (98-107); Glucose 100 mg/dL (70-105); Osmolality,Calculated 318 (280-300); Potassium 4.4 mEq/L (3.5-5.1); Sodium 142 mEq/L (136-145); eGFR For African Americans > 60 (> 60); eGFR For Non-African Americans 53 (> 60)
[2021-09-12] MEDS: Insulin LISPRO 300 UNITS/3 ML VIAL SUBQ SCH ×3 (07:25→16:13)
[2021-09-12] MEDS: MethylPREDNISolone 40 MG/ML VIAL IVP SCH (09:39)
[2021-09-12] MEDS: Budesonide/Formoterol 160/4.5 1 PUFF INH IH SCH ×2 (11:48→22:31)
[2021-09-12] MEDS: *HR* Enoxaparin 30 MG/0.3 ML SYRINGE SQ SCH (17:30)
[2021-09-12] MEDS: Topiramate 25 MG TABLET PO SCH (17:30)
[2021-09-13 02:12] LABS: Hematocrit 35.9 % (35.3-44.9); Hemoglobin 10.8 g/dL (11.5-15.4); Mean Corpuscular HGB Conc 30.1 g/dL (31.6-35.5); Mean Corpuscular Hemoglobin 27.2 pg (28.0-33.3); Mean Corpuscular Volume 90.4 fL (83.0-100.0); Mean Platelet Volume 11.3 fL (9.4-12.4); Platelet Count 153 K/mcL (140-400); Red Blood Count 3.97 M/mcL (3.82-4.97); Red Cell Distribution Width 15.8 % (11.5-14.5)
[2021-09-13 02:28] LABS: BUN/Creatinine Ratio 77 (6-26); Blood Urea Nitrogen 79 mg/dL (8-23); Calcium 9.2 mg/dL (8.6-10.3); Carbon Dioxide 36 mEq/L (23-29); Chloride 103 mEq/L (98-107); Glucose 102 mg/dL (70-105); Osmolality,Calculated 320 (280-300); Potassium 4.3 mEq/L (3.5-5.1); Sodium 143 mEq/L (136-145); eGFR For African Americans > 60 (> 60); eGFR For Non-African Americans 52 (> 60)
[2021-09-13] MEDS: Ipratropium/Albuterol Neb 3 ML IH SCH ×4 (03:44→19:43)
[2021-09-13] MEDS: Insulin LISPRO 300 UNITS/3 ML VIAL SUBQ SCH ×3 (08:33→17:23)
[2021-09-13] MEDS: MethylPREDNISolone 40 MG/ML VIAL IVP SCH (08:49)
[2021-09-13] MEDS: Budesonide/Formoterol 160/4.5 1 PUFF INH IH SCH ×2 (10:09→19:44)
[2021-09-13] MEDS ORDERED: E-Z-HD (BARIUM SULF) SUSPENSION PO ONE (15:27)
[2021-09-13] MEDS ORDERED: E-Z-PAQUE (BARIUM SULF) SUSP 1 BOTTLE PO ONE (15:27)
[2021-09-13] MEDS: *HR* Enoxaparin 30 MG/0.3 ML SYRINGE SQ SCH (17:26)
[2021-09-13] MEDS: Topiramate 25 MG TABLET PO SCH (17:26)
[2021-09-14] MEDS: Ipratropium/Albuterol Neb 3 ML IH SCH ×4 (03:41→20:25)
[2021-09-14 05:30] LABS: Hematocrit 38.5 % (35.3-44.9); Hemoglobin 11.4 g/dL (11.5-15.4); Mean Corpuscular HGB Conc 29.6 g/dL (31.6-35.5); Mean Corpuscular Volume 91.2 fL (83.0-100.0); Mean Platelet Volume 11.6 fL (9.4-12.4); Platelet Count 143 K/mcL (140-400); Red Blood Count 4.22 M/mcL (3.82-4.97); Red Cell Distribution Width 15.9 % (11.5-14.5); White Blood Count 11.3 K/mcL (4.3-11.1)
[2021-09-14 05:50] LABS: BUN/Creatinine Ratio 71 (6-26); Blood Urea Nitrogen 71 mg/dL (8-23); Calcium 9.3 mg/dL (8.6-10.3); Carbon Dioxide 36 mEq/L (23-29); Chloride 104 mEq/L (98-107); Glucose 99 mg/dL (70-105); Osmolality,Calculated 321 (280-300); Potassium 4.2 mEq/L (3.5-5.1); Sodium 145 mEq/L (136-145); eGFR For African Americans > 60 (> 60); eGFR For Non-African Americans 53 (> 60)
[2021-09-14] MEDS: Insulin LISPRO 300 UNITS/3 ML VIAL SUBQ SCH ×3 (07:47→16:59)
[2021-09-14] MEDS: MethylPREDNISolone 40 MG/ML VIAL IVP SCH (09:23)
[2021-09-14] MEDS: Budesonide/Formoterol 160/4.5 1 PUFF INH IH SCH ×2 (11:09→20:24)
[2021-09-14] MEDS: *HR* Enoxaparin 30 MG/0.3 ML SYRINGE SQ SCH (17:21)
[2021-09-14] MEDS: Topiramate 25 MG TABLET PO SCH (17:21)
[2021-09-15 02:13] LABS: Hemoglobin 11.2 g/dL (11.5-15.4); Mean Corpuscular HGB Conc 31.1 g/dL (31.6-35.5); Mean Corpuscular Hemoglobin 28.1 pg (28.0-33.3); Mean Corpuscular Volume 90.2 fL (83.0-100.0); Mean Platelet Volume 11.8 fL (9.4-12.4); Platelet Count 143 K/mcL (140-400); Red Blood Count 3.99 M/mcL (3.82-4.97); Red Cell Distribution Width 15.9 % (11.5-14.5); White Blood Count 11.3 K/mcL (4.3-11.1)
[2021-09-15 02:30] LABS: Calcium 9.2 mg/dL (8.6-10.3); Potassium 4.4 mEq/L (3.5-5.1)
[2021-09-15] MEDS: Ipratropium/Albuterol Neb 3 ML IH SCH ×4 (03:54→20:26)
[2021-09-15] MEDS: Insulin LISPRO 300 UNITS/3 ML VIAL SUBQ SCH ×3 (07:55→17:10)
[2021-09-15] MEDS: MethylPREDNISolone 40 MG/ML VIAL IVP SCH (08:17)
[2021-09-15] MEDS: D5% in 0.2% NACL 500 ML IVC SCH ×2 (09:59→17:24)
[2021-09-15] MEDS: Budesonide/Formoterol 160/4.5 1 PUFF INH IH SCH ×2 (11:14→20:25)
[2021-09-15] MEDS: Mirtazapine 15 MG TABLET PO SCH ×2 (17:07→21:19)
[2021-09-15] MEDS: Topiramate 25 MG TABLET PO SCH (17:10)
[2021-09-15] MEDS: *HR* Enoxaparin 30 MG/0.3 ML SYRINGE SQ SCH (17:11)
[2021-09-16] MEDS: D5% in 0.2% NACL 500 ML IVC SCH ×3 (00:49→17:48)
[2021-09-16 02:23] LABS: Hematocrit 34.8 % (35.3-44.9); Red Cell Distribution Width 15.9 % (11.5-14.5)
[2021-09-16 02:25] LABS: Hemoglobin 10.6 g/dL (11.5-15.4); Immature Platelets 15.4 % (1.1-6.1); Mean Corpuscular HGB Conc 30.5 g/dL (31.6-35.5); Mean Corpuscular Hemoglobin 27.9 pg (28.0-33.3); Mean Corpuscular Volume 91.6 fL (83.0-100.0); Mean Platelet Volume 12.6 fL (9.4-12.4); Red Blood Count 3.8 M/mcL (3.82-4.97); White Blood Count 9.7 K/mcL (4.3-11.1)
[2021-09-16 02:26] LABS: Calcium 8.8 mg/dL (8.6-10.3); Potassium 4.4 mEq/L (3.5-5.1)
[2021-09-16] MEDS: Ipratropium/Albuterol Neb 3 ML IH SCH ×4 (03:57→21:56)
[2021-09-16] MEDS ORDERED: 0.9 % Sodium Chloride 500 ML IVC ONE (08:14)
[2021-09-16] MEDS: MethylPREDNISolone 40 MG/ML VIAL IVP SCH (08:42)
[2021-09-16] MEDS: Insulin LISPRO 300 UNITS/3 ML VIAL SUBQ SCH ×3 (08:46→17:49)
[2021-09-16] MEDS: Budesonide/Formoterol 160/4.5 1 PUFF INH IH SCH ×2 (09:53→21:56)
[2021-09-16] MEDS: Topiramate 25 MG TABLET PO SCH (17:46)
[2021-09-16] MEDS: *HR* Enoxaparin 30 MG/0.3 ML SYRINGE SQ SCH (17:46)
[2021-09-16] MEDS: Mirtazapine 15 MG TABLET PO SCH (20:42)
[2021-09-17] MEDS: D5% in 0.2% NACL 500 ML IVC SCH ×3 (00:54→08:45)
[2021-09-17] MEDS: Ipratropium/Albuterol Neb 3 ML IH SCH ×3 (04:02→15:42)
[2021-09-17 05:21] LABS: Hematocrit 34.5 % (35.3-44.9); Hemoglobin 10.2 g/dL (11.5-15.4); Mean Corpuscular HGB Conc 29.6 g/dL (31.6-35.5); Mean Corpuscular Hemoglobin 27.4 pg (28.0-33.3); Mean Corpuscular Volume 92.7 fL (83.0-100.0); Mean Platelet Volume 12.2 fL (9.4-12.4); Platelet Count 131 K/mcL (140-400); Red Blood Count 3.72 M/mcL (3.82-4.97); Red Cell Distribution Width 15.9 % (11.5-14.5); White Blood Count 9.8 K/mcL (4.3-11.1)
[2021-09-17 05:36] LABS: Calcium 8.6 mg/dL (8.6-10.3); Potassium 4.1 mEq/L (3.5-5.1)
[2021-09-17] MEDS: Insulin LISPRO 300 UNITS/3 ML VIAL SUBQ SCH ×2 (08:39→11:39)
[2021-09-17] MEDS: MethylPREDNISolone 40 MG/ML VIAL IVP SCH (08:42)
[2021-09-17] MEDS ORDERED: Aspirin Enteric Coated 81 MG Tablet PO SCH (09:00)
[2021-09-17] MEDS: Budesonide/Formoterol 160/4.5 1 PUFF INH IH SCH (10:49)
[2021-09-17 16:16] VITALS: BP 125/56; PULSE 63; TEMP 98.2; O2SAT 93
[2021-09-17 16:30] LABS: Influenza A PCR Negative (Negative); Influenza B PCR Negative (Negative); Resp. Syncytial Virus PCR Negative (Negative)
[2021-09-17 16:32] LABS: SARS-CoV-2 by PCR (In House) Negative (Negative)
== END 2021-09-17 18:43 | disposition other institution (70) | DRG 871 ==
LOC: EMEROOARM 13:59 → 2NNU 13:59 → SUATTDRO 09-05 08:27 → 2ANU 09-09 18:38
PROVIDERS: ADMIT Internal Medicine; ATTEND Internal Medicine

== ENCOUNTER 2021-09-19 09:46 | Observation (INO) ==
[2021-09-19] MEDS ORDERED: Melatonin 3 MG TABLET PO PRN (14:26)
[2021-09-19] MEDS ORDERED: Ipratropium/Albuterol Neb 3 ML IH PRN (15:12)
[2021-09-19] MEDS: Mirtazapine 15 MG TABLET PO SCH (19:41)
[2021-09-19] MEDS: Topiramate 25 MG TABLET PO SCH (19:41)
[2021-09-20 02:25] LABS: Eosinophils # 0.1 K/mcL (0.0-0.6); Eosinophils % 1.3 %; Hematocrit 33.7 % (35.3-44.9); Hemoglobin 10.1 g/dL (11.5-15.4); Immature Granulocytes % 0.3 % (0-4); Lymphocytes # 1.3 K/mcL (0.6-4.6); Lymphocytes % 18.7 %; Mean Corpuscular Hemoglobin 27.7 pg (28.0-33.3); Mean Corpuscular Volume 92.6 fL (83.0-100.0); Mean Platelet Volume 11.2 fL (9.4-12.4); Monocytes # 0.5 K/mcL (0.0-1.3); Monocytes % 6.7 %; Platelet Count 158 K/mcL (140-400); Red Blood Count 3.64 M/mcL (3.82-4.97); Red Cell Distribution Width 15.8 % (11.5-14.5); White Blood Count 6.8 K/mcL (4.3-11.1)
[2021-09-20 02:32] LABS: INR 0.9; Prothrombin Time 10.3 Seconds (9.4-12.1)
[2021-09-20 02:42] LABS: Calcium 8.9 mg/dL (8.6-10.3); Magnesium 2.4 mg/dL (1.6-2.6); Phosphorous 3.5 mg/dL (2.7-4.5); Potassium 4.2 mEq/L (3.5-5.1)
[2021-09-20] MEDS: Aspirin Enteric Coated 81 MG Tablet PO SCH (08:01)
[2021-09-20] MEDS ORDERED: *HR* Enoxaparin 30 MG/0.3 ML SYRINGE SQ SCH (09:00)
[2021-09-20] MEDS: Fluticasone Propionate Nasal 50 MCG/SPRAY BOTTLE NS SCH (09:04)
[2021-09-20] MEDS ORDERED: E-Z-PAQUE (BARIUM SULF) SUSP 1 BOTTLE PO ONE (12:55)
[2021-09-20] MEDS ORDERED: E-Z-HD (BARIUM SULF) SUSPENSION PO ONE (12:55)
[2021-09-20] MEDS: Topiramate 25 MG TABLET PO SCH (17:24)
[2021-09-20] MEDS: Mirtazapine 15 MG TABLET PO SCH (20:05)
[2021-09-21 02:18] LABS: Basophils % 0.1 %; Eosinophils # 0.2 K/mcL (0.0-0.6); Eosinophils % 1.9 %; Hemoglobin 10.4 g/dL (11.5-15.4); Immature Granulocytes % 0.3 % (0-4); Lymphocytes % 12.2 %; Mean Corpuscular HGB Conc 29.7 g/dL (31.6-35.5); Mean Corpuscular Hemoglobin 27.4 pg (28.0-33.3); Mean Corpuscular Volume 92.1 fL (83.0-100.0); Mean Platelet Volume 11.5 fL (9.4-12.4); Monocytes # 0.4 K/mcL (0.0-1.3); Monocytes % 5.5 %; Neutrophils # 6.3 K/mcL (1.6-8.9); Platelet Count 159 K/mcL (140-400); Red Cell Distribution Width 15.9 % (11.5-14.5); White Blood Count 7.9 K/mcL (4.3-11.1)
[2021-09-21 02:38] LABS: BUN/Creatinine Ratio 39 (6-26); Blood Urea Nitrogen 37 mg/dL (8-23); Calcium 8.9 mg/dL (8.6-10.3); Carbon Dioxide 30 mEq/L (23-29); Chloride 106 mEq/L (98-107); Glucose 86 mg/dL (70-105); Magnesium 2.1 mg/dL (1.6-2.6); Osmolality,Calculated 302 (280-300); Phosphorous 2.4 mg/dL (2.7-4.5); Potassium 4.1 mEq/L (3.5-5.1); Sodium 142 mEq/L (136-145); eGFR For African Americans > 60 (> 60); eGFR For Non-African Americans 55 (> 60)
[2021-09-21] MEDS: *HR* Enoxaparin 40 MG/0.4 ML SYRINGE SQ SCH (04:56)
[2021-09-21] MEDS: Fluticasone Propionate Nasal 50 MCG/SPRAY BOTTLE NS SCH (08:40)
[2021-09-21] MEDS: Aspirin Enteric Coated 81 MG Tablet PO SCH (08:40)
[2021-09-21] MEDS: amLODIPine 5 MG TABLET PO SCH (17:41)
[2021-09-21] MEDS: Topiramate 25 MG TABLET PO SCH (17:41)
[2021-09-21] MEDS: Mirtazapine 15 MG TABLET PO SCH (19:15)
[2021-09-22] MEDS: *HR* Enoxaparin 40 MG/0.4 ML SYRINGE SQ SCH (05:03)
[2021-09-22 05:17] LABS: Magnesium 2.1 mg/dL (1.6-2.6); Phosphorous 2.5 mg/dL (2.7-4.5)
[2021-09-22] MEDS: Aspirin Enteric Coated 81 MG Tablet PO SCH (08:10)
[2021-09-22] MEDS: Fluticasone Propionate Nasal 50 MCG/SPRAY BOTTLE NS SCH (08:11)
[2021-09-22] MEDS: Topiramate 25 MG TABLET PO SCH (17:22)
[2021-09-22] MEDS: amLODIPine 5 MG TABLET PO SCH (17:22)
[2021-09-22] MEDS: Mirtazapine 15 MG TABLET PO SCH (19:17)
[2021-09-23] MEDS: *HR* Enoxaparin 40 MG/0.4 ML SYRINGE SQ SCH (05:10)
[2021-09-23] MEDS: Fluticasone Propionate Nasal 50 MCG/SPRAY BOTTLE NS SCH (07:59)
[2021-09-23] MEDS: Aspirin Enteric Coated 81 MG Tablet PO SCH (07:59)
[2021-09-23] MEDS: amLODIPine 5 MG TABLET PO SCH (17:09)
[2021-09-23] MEDS: Topiramate 25 MG TABLET PO SCH (17:09)
[2021-09-23] MEDS: Mirtazapine 15 MG TABLET PO SCH (20:00)
[2021-09-24] MEDS: *HR* Enoxaparin 30 MG/0.3 ML SYRINGE SQ SCH (05:03)
[2021-09-24] MEDS: Fluticasone Propionate Nasal 50 MCG/SPRAY BOTTLE NS SCH (08:02)
[2021-09-24] MEDS: Aspirin Enteric Coated 81 MG Tablet PO SCH (08:02)
[2021-09-24] MEDS: Leptospermum Honey Gel 44 ML TUBE TP SCH (12:37)
[2021-09-24] MEDS: amLODIPine 5 MG TABLET PO SCH (16:30)
[2021-09-24] MEDS: Topiramate 25 MG TABLET PO SCH (16:30)
[2021-09-24] MEDS: Mirtazapine 15 MG TABLET PO SCH (19:57)
[2021-09-24] MEDS: Budesonide/Formoterol 80/4.5 1 PUFF INH IH SCH (20:38)
[2021-09-25] MEDS: *HR* Enoxaparin 30 MG/0.3 ML SYRINGE SQ SCH (05:33)
[2021-09-25] MEDS: Aspirin Enteric Coated 81 MG Tablet PO SCH (07:33)
[2021-09-25] MEDS: Fluticasone Propionate Nasal 50 MCG/SPRAY BOTTLE NS SCH (07:34)
[2021-09-25] MEDS: Leptospermum Honey Gel 44 ML TUBE TP SCH (07:34)
[2021-09-25] MEDS: Budesonide/Formoterol 80/4.5 1 PUFF INH IH SCH (08:09)
[2021-09-25] MEDS ORDERED: Tiotropium 10 INH DOSE IH SCH (10:00)
[2021-09-25 11:49] VITALS: TEMP 98.5
[2021-09-25 17:02] VITALS: BP 113/67; PULSE 65; O2SAT 92
[2021-09-25] MEDS: Topiramate 25 MG TABLET PO SCH (17:22)
[2021-09-25] MEDS: amLODIPine 5 MG TABLET PO SCH (17:22)
[2021-09-25 18:09] LABS: Influenza A PCR Negative (Negative); Influenza B PCR Negative (Negative); Resp. Syncytial Virus PCR Negative (Negative)
[2021-09-25 18:10] LABS: SARS-CoV-2 by PCR (In House) Negative (Negative)
== END 2021-09-25 18:51 | disposition other institution (70) ==
LOC: 2ANU → SUATTDRO 13:42
PROVIDERS: ADMIT Internal Medicine; ATTEND Internal Medicine